=== PATIENT | female | born 1960 | race Caucasian/White ===

== ENCOUNTER 2020-09-29 11:33 | Outpatient (REF) | payer MEDICAID, SELFPAY ==
--- NOTE | 2020-09-29 | US_ITS ---
EXAMINATION: PELVIC ULTRASOUND CLINICAL INFORMATION: Fibroids COMPARISON: Previous pelvic ultrasounds most recent May 2020 TECHNIQUE: Transabdominal and transvaginal pelvic ultrasound was performed. Transvaginal exam was performed for better visualization of the uterus and ovaries. FINDINGS: The uterus is anteverted and measures 9.4 x 5.1 x 7.6 cm in dimension. There is a 4.5 x 4.1 x 4.9 cm right upper uterine body fibroid. This abuts the endometrium. This is increased in size from 3.7 x 3.5 x 3.6 cm on previous exam. There is a 1.4 x 0.9 x 1.2 cm fibroid in the anterior uterine body that is unchanged. There is a 1.2 x 1.3 x 1.5 cm fibroid in the left uterine fundus. This may be increased in size from approximately 1 cm on previous exam. There is a 1.2 x 0.9 x 1.1 cm fibroid in the upper anterior uterine body. This was not appreciated on the previous exam. The endometrium appears thickened for a postmenopausal patient measuring 1.3 cm. This is similar to previous exam. The previously identified endometrial cyst on most recent exam May 2020 is no longer seen. There are small nabothian cysts in the cervix. The right ovary is not seen. The left ovary is normal-appearing and measures 2.3 x 1.9 x 1.5 cm. There is no fluid in the pelvis. US/US pelvic complete IMPRESSION: Fibroid uterus. Several fibroids appear increased in size from May 2020 exam, largest measuring 4.5 x 4.1 x 4.9 cm in the right upper uterine body near the endometrium. Thickened endometrium for postmenopausal patient measuring 1.3 cm. This is similar to previous exam. Normal-appearing left ovary. Right ovary not seen.
== END 2020-09-29 11:34 | disposition home or self-care (01) ==
LOC: HO.US 11:33
PROVIDERS: Visit Provider Obstetrics & Gynecology
DX: D21.9 Benign neoplasm of connective and other soft tissue, unspecified (principal)
CPT/HCPCS: 76830; 76856

== ENCOUNTER → 2020-11-22 10:48 | Outpatient (BNVA) | payer MEDICAID, SELFPAY | PROVIDERS: PCP Nurse Practitioner Family; Referring Provider Nurse Practitioner Family; Visit Provider Obstetrics & Gynecology | DX: Z76.89 Persons encountering health services in other specified circumstances (principal) ==

== ENCOUNTER 2021-05-23 10:50 | Outpatient (REF) | payer MEDICAID, SELFPAY ==
--- NOTE | ~2021-05-23 | US_ITS ---
EXAMINATION: US PELVIS COMPLETE US TRANSVAGINAL CLINICAL INFORMATION: Benign neoplasm of connective and other soft tissues. COMPARISON: Ultrasound pelvis 09/29/2020 TECHNIQUE: Transabdominal and transvaginal imaging of pelvis is performed. FINDINGS: The uterus is midline or anteverted measuring 9.7 cm in length, 5.3 cm in AP and 5.5 cm in transverse dimension. The endometrial thickness is 1.3 cm and mildly hypervascular. There are multiple hyperechoic lesions. 1. Lesion in the right upper body of the uterus measures 4.7 x 4.5 x 4.3 cm. Previously it measured 4.5 x 4.1 x 4.9 cm. 2. Lesion in the anterior mid body of the uterus likely submucosal location measures 1.4 x 0.7 x 1.1 cm. Previously it measured 1.4 x 0.9 x 1.2 cm. 3. Lesion in the posterior body of the uterus measures 1.5 x 1.0 x 0.9 cm. Previously it was not seen. 4. Lesion in the anterior fundus of the uterus measures 1.4 x 1.6 x 1.4 cm. It has an echogenic calcification. Previously it measured 1.2 x 1.3 x 1.5 cm. 5. Lesion described previously is not seen at this time. The right ovary measures 2.3 x 1.5 x 1.1 cm and volume 2.0 mL. It appears unremarkable and best seen on transvaginal study. The left ovary measures 2.1 x 1.4 x 1.7 cm and volume 26 mL. Previously it measured 2.3 x 1.9 x 1.5 cm and volume 3.4 mL. There is no free fluid in the cul-de-sac. US/US pelvic complete IMPRESSION: Multiple uterine fibroids, as described above. The previously described 5th fibroid is not seen at this time. Thickened endometrium with hypervascular flow. The ovaries are unremarkable. There is no free fluid in the cul-de-sac.
== END 2021-05-23 10:51 | disposition home or self-care (01) ==
LOC: HO.US 10:50
PROVIDERS: Visit Provider Obstetrics & Gynecology
DX: D21.9 Benign neoplasm of connective and other soft tissue, unspecified (principal)
CPT/HCPCS: 76830; 76856

== ENCOUNTER → 2021-05-30 11:24 | Outpatient (BNVA) | payer MEDICAID, SELFPAY | PROVIDERS: PCP Nurse Practitioner Family; Visit Provider Obstetrics & Gynecology ==

== ENCOUNTER → 2021-08-01 09:52 | Outpatient (BNVA) | payer MEDICAID, SELFPAY | PROVIDERS: PCP Nurse Practitioner Family; Visit Provider Obstetrics & Gynecology ==

== ENCOUNTER → 2021-09-08 13:06 | Outpatient (BNVA) | payer MEDICAID, SELFPAY | PROVIDERS: PCP Nurse Practitioner Family; Referring Provider Nurse Practitioner Family; Visit Provider Surgery | DX: N63.0 Unspecified lump in unspecified breast (principal) | CPT/HCPCS: 99202 ==

== ENCOUNTER → 2021-12-19 14:51 | Outpatient (BNVA) | payer MEDICAID, SELFPAY | PROVIDERS: PCP Nurse Practitioner Family; Referring Provider Internal Medicine; Visit Provider Physician Assistant | DX: Z12.11 Encounter for screening for malignant neoplasm of colon (principal); R07.9 Chest pain, unspecified | CPT/HCPCS: 99202 ==

== ENCOUNTER 2021-12-19 15:33 | Emergency (ER) | payer MEDICAID, SELFPAY ==
--- NOTE | ~2021-12-19 | XR_ITS ---
EXAMINATION: XR CHEST CLINICAL INFORMATION: Chest pain. COMPARISON: Chest radiograph dated from 09/09/2017. TECHNIQUE: PA view of the chest was obtained. FINDINGS: Normal appearance of the cardiomediastinal silhouette. No focal airspace opacities, pleural effusions or pneumothorax. No acute osseous abnormalities. The visualized upper abdomen is within normal limits. XR/XR chest 1V IMPRESSION: No acute cardiopulmonary findings.
--- NOTE | 2021-12-19 15:44 | ECG_ITS ---
Test Reason : chest pain Blood Pressure : / mmHG Vent. Rate : 065 BPM Atrial Rate : 065 BPM P-R Int : 150 ms QRS Dur : 086 ms QT Int : 430 ms P-R-T Axes : 063 022 017 degrees QTc Int : 447 ms Normal sinus rhythm Normal ECG No previous ECGs available Referred By: Generic ED Physician Electronically Signed By:Antione Frias
[2021-12-19 15:50] VITALS: BP 154/78; PULSE 71; RESP 18; TEMP 36.5; O2SAT 99; BMI 27.4
[2021-12-19 16:57] LABS: MANUAL DIFF FLAG NO
[2021-12-19 17:00] LABS: Basophils Absolute Auto 0.1 X10*3/uL (0.0-0.2); Basophils Percent Auto 0.6 % (0-2); Eosinophils Absolute Auto 0.2 X10*3/uL (0.0-0.4); Eosinophils Percent Auto 2.1 % (0-4); Hematocrit 42.9 % (37.0-47.0); Hemoglobin 14.6 g/dl (12.0-16.0); Imm Gran Abs Auto 0.03 X10*3/uL (0.00-0.03); Imm Gran Pct Auto 0.3 % (0.0-0.4); Lymphocytes Absolute Auto 4.6 X10*3/uL (1.2-4.9); Lymphocytes Percent Auto 43.5 % (20-40); Mean Corpuscular Hemoglobin 29.4 pg (27.0-33.0); Mean Corpuscular Volume 86.5 fL (80.0-98.0); Mean Platelet Volume 10.7 fL (9.4-12.3); Monocytes Absolute Auto 0.5 X10*3/uL (0.1-1.2); Monocytes Percent Auto 4.2 % (2-11); Neutrophils Absolute Auto 5.3 x10*3/uL (2.0-8.3); Neutrophils Percent Auto 49.3 % (45-73); Platelet Count 282 X10*3/uL (160-400); Red Blood Count 4.96 X10*6/uL (4.20-5.50); Red Cell Distribution Width 12.6 % (11.0-16.0); White Blood Count 10.6 X10*3/uL (4.8-10.8)
[2021-12-19 17:17] LABS: Anion Gap 13 (12-20); Blood Urea Nitrogen 12 mg/dL (9-16); Calcium 10.4 mg/dL (8.4-10.2); Carbon Dioxide 28 mmol/L (22-29); Chloride 103 mmol/L (96-108); Creatinine Clr Calc Pharmacy 66.7; Estimated Glomerular Filt Rate > 60; Glucose Random 111 mg/dL (60-115); Potassium 3.5 mmol/L (3.3-5.1); Sodium 140 mmol/L (135-145)
[2021-12-19 17:25] LABS: Troponin-I High Sensitivity < 3.5 ng/L (<3.5-17.0)
--- NOTE | 2021-12-19 19:56 | ED.CHESTPAIN ---
HPI - Chest Pain General Chief Complaint: Chest Pain Stated Complaint: chest pain, sob Time Seen by Provider: 12/19/21 19:56 Source: patient History of Present Illness HPI narrative: Patient states she has had chest pain Since yesterday. It is sharp in on her left side. It is worse with breathing. No difficulty breathing. No cough. No history of similar issues. It is constant since yesterday. No change with exertion. No history of thromboembolic disease Risk factors are hypertension which is typically well controlled at home. Nonsmoker Review of Systems Constitutional: Comments: No fevers or chills Cardiovascular: Comments: Chest pain as described. No palpitations Respiratory: Comments: No cough Gastrointestinal: Comments: No nausea vomiting Musculoskeletal: Comments: No leg pain Integumentary/Breasts: Comments: No rash PMFSH Past Medical History Medical History (Updated 12/19/21 @ 20:00 by Joe Vargas MD) Breast cancer Hypertension Social History Social History Patient : No Physical Exam Vital Signs: Vital Signs: Last Vital Signs Temp 97.7 F 12/19/21 15:50 Pulse 71 12/19/21 15:50 Resp 18 12/19/21 15:50 BP 154/78 H 12/19/21 15:50 Pulse Ox 99 12/19/21 15:50 BMI result Body Mass Index 27.4 Const: Other: Awake alert no acute distress Neck: Other: Full range of motion Chest: Other: Chest wall nontender to palpation Resp: Other: Clear and equal bilaterally without wheezes rales or rhonchi Cardio: Other: Regular rate and rhythm without murmurs rubs or gallops GI: Other: Soft nontender Skin: Other: Warm pink and dry without rash Neuro: Other: Alert and oriented. Ambulates without difficulty Course Course Course Narrative: Chest pain with risk factor of hypertension. Rule out cardiac etiology. No thromboembolic risk factors Workup in the emergency department shows EKG with normal sinus rhythm with no evidence of ischemia All labs including troponin are normal Chest x-ray is normal Stable for discharge home MDM - Chest Pain Lab Data Result diagrams: 12/19/21 16:53 12/19/21 16:52 Labs: Lab Results 12/19/21 12/19/21 12/19/21 Range/Units 16:52 16:52 16:53 WBC 10.6 (4.8-10.8) X10*3/uL RBC 4.96 (4.20-5.50) X10*6/uL Hgb 14.6 (12.0-16.0) g/dl Hct 42.9 (37.0-47.0) % MCV 86.5 (80.0-98.0) fL MCH 29.4 (27.0-33.0) pg MCHC 34.0 (31.0-35.0) g/dl RDW 12.6 (11.0-16.0) % Plt Count 282 (160-400) X10*3/uL MPV 10.7 (9.4-12.3) fL Immature Gran % (Auto) 0.3 (0.0-0.4) % Neut % (Auto) 49.3 (45-73) % Lymph % (Auto) 43.5 H (20-40) % [place] % (Auto) 4.2 (2-11) % Eos % (Auto) 2.1 (0-4) % Baso % (Auto) 0.6 (0-2) % Lymph # (Auto) 4.6 (1.2-4.9) X10*3/uL [place] # (Auto) 0.5 (0.1-1.2) X10*3/uL Eos # (Auto) 0.2 (0.0-0.4) X10*3/uL Baso # (Auto) 0.1 (0.0-0.2) X10*3/uL Abs Immat Gran (auto) 0.03 (0.00-0.03) X10*3/uL Absolute Neuts (auto) 5.3 (2.0-8.3) x10*3/uL Absolute Nucleated RBC 0.000 (0.0-0.012) X10*3/uL Nucleated RBC % (auto) 0.0 (0.0-0.2) /100WBC Sodium 140 (135-145) mmol/L Potassium 3.5 (3.3-5.1) mmol/L Chloride 103 (96-108) mmol/L Carbon Dioxide 28 (22-29) mmol/L Anion Gap 13 (12-20) BUN 12 (9-16) mg/dL Creatinine 0.82 (0.5-1.4) mg/dL Estim Creat Clear Calc 66.7 Estimated GFR > 60 Random Glucose 111 (60-115) mg/dL Calcium 10.4 H (8.4-10.2) mg/dL Troponin I High Sens < 3.5 (<3.5-17.0) ng/L Discharge Plan Discharge Clinical Impression: Atypical chest pain Patient Disposition: Home, Self-Care Instructions: Chest Wall Pain (ED)
== END 2021-12-19 21:02 | disposition home or self-care (01) ==
LOC: HO.ED 20:05
PROVIDERS: Emergency Provider Emergency Medicine
DX: R07.89 Other chest pain (principal); I10 Essential (primary) hypertension; Z85.3 Personal history of malignant neoplasm of breast
CPT/HCPCS: 36415; 71045; 80048; 84484; 85025; 93005; 99283

== ENCOUNTER 2022-01-13 13:38 | Outpatient (REF) | payer MEDICAID, SELFPAY ==
--- NOTE | ~2022-01-13 | XR_ITS ---
EXAMINATION: XR SHOULDER, LEFT CLINICAL INFORMATION: Pain COMPARISON: None TECHNIQUE: AP external rotation, Grashey, scapular Y, and axillary views of the left shoulder. FINDINGS: Bone alignment is normal. No fracture or dislocation is seen. The glenohumeral joint is normal. There is mild arthritis at the acromioclavicular joint. Soft tissues are unremarkable. XR/XR shoulder LT min 2V IMPRESSION: Mild arthritis at the acromioclavicular joint.
== END 2022-01-13 13:39 | disposition home or self-care (01) ==
LOC: HO.XRAY 13:38
PROVIDERS: PCP Registered Nurse; Visit Provider Registered Nurse
DX: M25.512 Pain in left shoulder (principal)
CPT/HCPCS: 73030

== ENCOUNTER → 2022-02-01 13:45 | Outpatient (BNVA) | payer MEDICAID, SELFPAY | PROVIDERS: PCP Internal Medicine; Referring Provider Internal Medicine; Visit Provider Internal Medicine Cardiovascular Disease | DX: R07.9 Chest pain, unspecified (principal) | CPT/HCPCS: 99202 ==

== ENCOUNTER → 2022-02-15 10:25 | Outpatient (REF) | payer MEDICAID, SELFPAY ==
--- NOTE | 2022-02-15 10:29 | CA_ITS ---
Acquisition Time: 2022-02-15 11:01:22 Total Exercise Time: 00:05:00 Test Indications: CP Medications: SEE CHART Protocol: JESÚS Max HR: 141 BPM 87% of Pred: 161 BPM Max BP: 176/070 mmHG Max Work Load: 7.0 METS Exercise stress test with exercise 5 min of Jesús protocol achieving 88% MPHR and 7 METs, with mild sob and fatigue and request to stop, with no chest discomfort, with isolated PVC, with normotensive response to exercise, without EKG changes meeting criteria for ischemia. Test reviewed with Dr Manrique. Referred By: Antione Frias Overread By: NENITA JUNG
== END ==
LOC: HO.CARD 10:25
PROVIDERS: PCP Registered Nurse; Visit Provider Internal Medicine Cardiovascular Disease
DX: R07.9 Chest pain, unspecified (principal)
CPT/HCPCS: 93017

== ENCOUNTER 2022-02-20 21:29 | Emergency (ER) | payer MEDICAID, SELFPAY ==
[2022-02-20 21:35] VITALS: BP 180/82; PULSE 80; O2SAT 98
[2022-02-20 22:12] VITALS: BP 173/75; PULSE 88; RESP 20; TEMP 36.9; O2SAT 99; BMI 28.3
--- NOTE | 2022-02-21 01:19 | ED.GENADULT ---
HPI - General Adult General Chief complaint: General Medical Time Seen by Provider: 02/21/22 01:18 Source: patient Mode of arrival: ambulatory Limitations: no limitations Related Data Home Medications Medication Instructions Recorded Confirmed aspirin 81 mg chewable tablet 81 mg PO DAILY 11/22/20 02/01/22 cholecalciferol (vitamin D3) 50 50 mcg PO DAILY 11/22/20 02/01/22 mcg (2,000 unit) capsule rosuvastatin 5 mg tablet 10 mg PO DAILY tab 11/22/20 02/01/22 amlodipine 2.5 mg tablet 2.5 mg PO DAILY 08/01/21 02/01/22 cyanocobalamin (vitamin B-12) 1,000 mcg PO DAILY 08/01/21 02/01/22 1,000 mcg tablet loratadine 10 mg tablet 10 mg PO DAILY 08/01/21 02/01/22 metformin 500 mg tablet,extended 500 mg PO BID 08/01/21 02/01/22 release 24 hr rosuvastatin 10 mg tablet 10 mg PO DAILY 08/01/21 02/01/22 alcohol swabs (Alcohol Prep Pads) pad TOPICAL BID 09/08/21 02/01/22 blood pressure test kit-large #1 ea 09/08/21 02/01/22 blood sugar diagnostic (FreeStyle #10 ea 09/08/21 02/01/22 Lite Strips) blood-glucose meter (FreeStyle #1 ea 09/08/21 02/01/22 [place] Lite) lancets 33 gauge (TRUEplus Lancets) #100 ea 09/08/21 02/01/22 topiramate 25 mg tablet 25 mg PO DAILY 09/08/21 02/01/22 chlorthalidone 25 mg tablet 25 mg PO DAILY 02/01/22 02/01/22 cholecalciferol (vitamin D3) 50 50 mcg PO DAILY 02/01/22 02/01/22 mcg (2,000 unit) tablet lisinopril 40 mg tablet 40 mg PO DAILY 02/01/22 02/01/22 Allergies Allergy/AdvReac Type Severity Reaction Status Date / Time Gadolinium-Containing Allergy Severe HIVES Verified 02/01/22 13:47 Contrast Medi [GADOLINIUM-CONTAINING AGENTS] Iodinated Contrast Media Allergy Severe UNKNOWN Verified 02/01/22 13:47 [IV DYE, IODINE CONTAINING CONTRAST ] SEAFOOD Allergy Severe HIVES Uncoded 02/01/22 13:47 SHELLFISH Allergy Severe ANAPHYLAXIS Uncoded 02/01/22 13:47 [facility] Past Medical History Medical History (Updated 02/01/22 @ 14:02 by Antione Frias MD) Anemia Breast cancer Breast cancer, right Chest pain Depression High cholesterol HTN (hypertension) Hypertension Migraine Prediabetes Surgical History S/P lumpectomy, right breast Family History Family History Sister Breast cancer Ovarian cancer Social History Social History Household Members: Spouse Alcohol intake: never Patient Tobacco Use Status: Never used Tobacco Current occupational status: disabled Sexual orientation: Straight/Heterosexual Gender identity: Female Physical Exam ED Vital Signs: Vital Signs - 24 hr 02/20/22 22:12 Temperature 98.4 F Pulse Rate 88 Respiratory Rate 20 Blood Pressure 173/75 H Pulse Oximetry 99 BMI result Body Mass Index 28.3 Discharge Plan Discharge Prescriptions: No Action rosuvastatin 10 mg tablet 10 mg PO DAILY 0RF metformin 500 mg tablet extended release 24 hr 500 mg PO BID 0RF cyanocobalamin (vitamin B-12) 1,000 mcg tablet 1,000 mcg PO DAILY 0RF loratadine 10 mg tablet 10 mg PO DAILY 0RF amlodipine 2.5 mg tablet 2.5 mg PO DAILY 0RF cholecalciferol (vitamin D3) 50 mcg (2,000 unit) capsule 50 mcg PO DAILY 0RF aspirin 81 mg tablet,chewable 81 mg PO DAILY 0RF rosuvastatin 5 mg tablet 10 mg PO DAILY 0RF topiramate 25 mg tablet 25 mg PO DAILY 0RF (DME) lancets [TRUEplus Lancets] 33 gauge misc See Rx Instructions ea Not Applicable BID Qty: 100 0RF Rx Instructions: As directed (DME) blood pressure test kit-large Kit See Rx Instructions ea .ROUTE BID Qty: 1 0RF Rx Instructions: As directed alcohol swabs [Alcohol Prep Pads] Pads, Medicated topical BID 0RF (DME) FreeStyle Lite Strips Strip See Rx Instructions ea Not Applicable BID Qty: 10 0RF Rx Instructions: As directed (DME) blood-glucose meter [FreeStyle [place] Lite] Kit See Rx Instructions ea Not Applicable BID Qty: 1 0RF Rx Instructions: As directed lisinopril 40 mg tablet 40 mg PO DAILY 0RF chlorthalidone 25 mg tablet 25 mg PO DAILY 0RF cholecalciferol (vitamin D3) 50 mcg (2,000 unit) tablet 50 mcg PO DAILY 0RF
== END 2022-02-21 02:02 | disposition left against medical advice (07) ==
PROVIDERS: Emergency Provider Emergency Medicine
DX: M54.2 Cervicalgia (principal)
CPT/HCPCS: 99281; 99282

== ENCOUNTER 2022-11-14 16:28 | Outpatient (REF) | payer MEDICAID, SELFPAY ==
--- NOTE | ~2022-11-14 | XR_ITS ---
EXAMINATION: XR WRIST, RIGHT CLINICAL INFORMATION: Acute worsening of right aspect of wrist pain. COMPARISON: X-ray 05/17/2019 TECHNIQUE: Four views of the right wrist. FINDINGS: There is marked diffuse bone demineralization. No acute fracture or dislocation is seen. No definite scaphoid fracture is seen. Moderate-severe first CMC arthritis. Mild first MCP arthritis. Mild triscaphe joint arthritis. Carpal rows are well aligned. Stable ulna styloid blunting. Multiple small radiodensities projected over the and, probably related to overlapping densities. Technologist notes indicate patient has artificial nails. XR/XR wrist RT min 3V IMPRESSION: No radiographically evident acute fracture or dislocation. Osteopenia limits evaluation. If this persistent symptoms, follow-up radiographs are recommended. Arthritis. Moderate-severe first CMC arthritis.
== END 2022-11-14 16:29 | disposition home or self-care (01) ==
LOC: HO.XRAY 16:28
PROVIDERS: PCP Registered Nurse; Visit Provider Registered Nurse
DX: M25.531 Pain in right wrist (principal)
CPT/HCPCS: 73110

== ENCOUNTER → 2023-01-30 14:57 | Outpatient (BNVA) | payer MEDICAID, SELFPAY | PROVIDERS: PCP Registered Nurse; Visit Provider Physician Assistant | DX: M19.031 Primary osteoarthritis, right wrist (principal) | CPT/HCPCS: 99202 ==

== ENCOUNTER 2023-05-28 09:28 | Outpatient (REF) | payer MEDICAID, SELFPAY ==
[2023-05-28 11:58] LABS: MANUAL DIFF FLAG NO
[2023-05-28 12:09] LABS: Basophils Absolute Auto 0.1 X10*3/uL (0.0-0.2); Basophils Percent Auto 0.7 % (0-2); Eosinophils Absolute Auto 0.2 X10*3/uL (0.0-0.4); Eosinophils Percent Auto 1.9 % (0-4); Hematocrit 42.2 % (37.0-47.0); Imm Gran Abs Auto 0.02 X10*3/uL (0.00-0.03); Imm Gran Pct Auto 0.2 % (0.0-0.4); Lymphocytes Absolute Auto 4.1 X10*3/uL (1.2-4.9); Lymphocytes Percent Auto 48.5 % (20-40); Mean Corpuscular HGB Conc 33.2 g/dl (31.0-35.0); Mean Corpuscular Hemoglobin 29.2 pg (27.0-33.0); Mean Corpuscular Volume 87.9 fL (80.0-98.0); Mean Platelet Volume 10.5 fL (9.4-12.3); Monocytes Absolute Auto 0.4 X10*3/uL (0.1-1.2); Neutrophils Absolute Auto 3.7 x10*3/uL (2.0-8.3); Neutrophils Percent Auto 43.7 % (45-73); Platelet Count 271 X10*3/uL (160-400); Red Cell Distribution Width 12.9 % (11.0-16.0); White Blood Count 8.5 X10*3/uL (4.8-10.8)
[2023-05-28 12:25] LABS: Estimated Average Glucose 134 mg/dL; Hemoglobin A1c % 6.3 %
[2023-05-28 12:38] LABS: Syphilis Screen Nonreactive (Nonreactive)
[2023-05-28 12:39] LABS: HIV AB/AG Nonreactive (Nonreactive); HIV Num 1 0.05 S/CO (0.00-0.99)
[2023-05-28 12:50] LABS: Alanine Aminotransferase 8 U/L (0-31); Albumin Level 4.2 g/dL (3.5-5.0); Alkaline Phosphatase 40 U/L (39-117); Anion Gap 14 (12-20); Aspartate Amino Transferase 17 U/L (5-31); Bilirubin Total 0.3 mg/dL (0.0-1.0); Blood Urea Nitrogen 10 mg/dL (9-16); Calcium 10.7 mg/dL (8.4-10.2); Carbon Dioxide 28 mmol/L (22-29); Chloride 106 mmol/L (96-108); Cholesterol 208 mg/dL; Estimated Glomerular Filt Rate > 60; Glucose Random 136 mg/dL (60-115); HDL Cholesterol 42 mg/dL; LDL Cholesterol Calculated 142 mg/dl; Potassium 3.8 mmol/L (3.3-5.1); Sodium 144 mmol/L (135-145); Total Protein 8.5 g/dL (6.5-8.0); Triglycerides 124 mg/dL
[2023-05-28 12:53] LABS: Folate 14.7 ng/mL (> or = 4.0); Vitamin B12 367 pg/mL (200-900)
[2023-05-28 12:58] LABS: TSH reflex Free T4 1.68 uIU/mL (0.32-4.0)
== END 2023-05-28 09:29 | disposition home or self-care (01) ==
LOC: HO.HHCL 09:28
PROVIDERS: Visit Provider Registered Nurse
DX: Z00.00 Encounter for general adult medical examination without abnormal findings (principal); Z11.4 Encounter for screening for human immunodeficiency virus [HIV]; E78.00 Pure hypercholesterolemia, unspecified; I10 Essential (primary) hypertension; R73.02 Impaired glucose tolerance (oral)
CPT/HCPCS: 36415; 80053; 80061; 82306; 82607; 82746; 83036; 84443; 85025; 86780; 87389

== ENCOUNTER 2024-02-19 08:40 | Outpatient (REF) | payer MEDICAID, SELFPAY ==
[2024-02-19 12:08] LABS: Anion Gap 12 (12-20); Blood Urea Nitrogen 7 mg/dL (9-16); Carbon Dioxide 29 mmol/L (22-29); Chloride 108 mmol/L (96-108); Estimated Glomerular Filt Rate > 60; Glucose Random 98 mg/dL (60-115); Potassium 3.6 mmol/L (3.3-5.1); Sodium 145 mmol/L (135-145)
[2024-02-19 12:14] LABS: Estimated Average Glucose 128 mg/dL; Hemoglobin A1c % 6.1 % (<6.0)
[2024-02-19 12:15] LABS: Creatinine Urine 60.93 mg/dL; Microalbum/Creatinine Ratio Ur 88.6 ug/mg cr (<30)
== END 2024-02-19 08:41 | disposition home or self-care (01) ==
LOC: HO.HHCL 08:40
PROVIDERS: Visit Provider Nurse Practitioner Primary Care
DX: R73.02 Impaired glucose tolerance (oral) (principal); I10 Essential (primary) hypertension
CPT/HCPCS: 36415; 80048; 82043; 82570; 83036

== ENCOUNTER 2024-06-26 09:57 | Outpatient (REF) | payer MEDICAID, SELFPAY ==
[2024-06-26 11:32] LABS: Hematocrit 38.9 % (37.0-47.0); Hemoglobin 13.2 g/dl (12.0-16.0); Mean Corpuscular HGB Conc 33.9 g/dl (31.0-35.0); Mean Corpuscular Hemoglobin 29.7 pg (27.0-33.0); Mean Corpuscular Volume 87.6 fL (80.0-98.0); Platelet Count 296 X10*3/uL (160-400); Red Blood Count 4.44 X10*6/uL (4.20-5.50); Red Cell Distribution Width 12.8 % (11.0-16.0)
[2024-06-26 11:39] LABS: Estimated Average Glucose 126 mg/dL
[2024-06-26 12:05] LABS: Alanine Aminotransferase 10 U/L (0-31); Albumin Level 4.4 g/dL (3.5-5.0); Alkaline Phosphatase 39 U/L (39-117); Anion Gap 14 (12-20); Aspartate Amino Transferase 16 U/L (5-31); Bilirubin Total 0.3 mg/dL (0.0-1.0); Blood Urea Nitrogen 12 mg/dL (9-16); Calcium 10.5 mg/dL (8.4-10.2); Carbon Dioxide 27 mmol/L (22-29); Chloride 105 mmol/L (96-108); Cholesterol 208 mg/dL (<200); Estimated Glomerular Filt Rate > 60; Glucose Random 125 mg/dL (60-115); HDL Cholesterol 46 mg/dL (>40); LDL Cholesterol Calculated 137 mg/dL (<100); Potassium 3.7 mmol/L (3.3-5.1); Sodium 142 mmol/L (135-145); Total Protein 8.9 g/dL (6.5-8.0); Triglycerides 125 mg/dL (<150)
[2024-06-26 12:06] LABS: Syphilis Screen Nonreactive (Nonreactive); TSH reflex Free T4 0.77 uIU/mL (0.32-4.0); Vitamin D 25-OH Total 25.8 ng/mL (>30)
[2024-06-26 12:14] LABS: Folate 9.5 ng/mL (> or = 4.0); Vitamin B12 412 pg/mL (200-900)
[2024-06-26 13:31] LABS: CT PCR NOT DETECTED (Not Detect.); NG PCR NOT DETECTED (Not Detect.)
[2024-06-27 04:12] LABS: HBS Num1 0.39 mIU/mL (0-7.99); HBsAGNum1 0.27 S/CO (0.00-0.99); HIV AB/AG Nonreactive (Nonreactive); HIV Num 1 0.05 S/CO (0.00-0.99); Hepatitis B Core Antibody Nonreactive (Nonreactive); Hepatitis B Surface Antigen Negative (Negative); ~HepC Num1 0.19 S/CO (0.00-0.79); ~Hepatitis B Surface Antibody NONREACTIVE (Nonreactive); ~Hepatitis C Antibody Nonreactive (Nonreactive)
== END 2024-06-26 09:58 | disposition home or self-care (01) ==
LOC: HO.HHCL 09:57
PROVIDERS: Visit Provider Student in an Organized Health Care Education/Training Program
DX: Z00.00 Encounter for general adult medical examination without abnormal findings (principal)
CPT/HCPCS: 36415; 80053; 80061; 82306; 82607; 82746; 83036; 84443; 85027; 86704; 86706; 86780; 86803; 87340; 87389; 87491; 87591

== ENCOUNTER 2024-09-05 10:28 | Emergency (ER) | payer MEDICAID, SELFPAY ==
--- NOTE | ~2024-09-05 | XR_ITS ---
EXAMINATION: XR ANKLE, RIGHT XR FOOT, RIGHT CLINICAL INFORMATION: Swelling. COMPARISON: None available. TECHNIQUE: AP, lateral, and mortise views of the right ankle. AP, lateral, and oblique views of the right foot. FINDINGS: There is mild bony demineralization. The ankle mortise is intact. No fracture, dislocation or right ankle joint effusion is seen. Boehler's angle is normal. There are tiny posterior and moderate plantar calcaneal spurs. There is very mild bunion formation of the first metatarsal head. No bone erosion or periosteal thickening is seen. There is mild soft tissue swelling adjacent to the lateral malleolus. There is no soft tissue gas or foreign body. XR/XR foot RT min 3V IMPRESSION: 1. No fracture, dislocation or right ankle joint effusion is seen. 2. There is mild soft tissue swelling adjacent to the lateral malleolus. 3. There is very mild bunion formation of the first metatarsal head. 4. There are calcaneal spurs. Electronically signed by: Davon Bowser MD 09/05/2024 12:48 PM EDT
--- NOTE | ~2024-09-05 | XR_ITS ---
EXAMINATION: XR ANKLE, RIGHT XR FOOT, RIGHT CLINICAL INFORMATION: Swelling. COMPARISON: None available. TECHNIQUE: AP, lateral, and mortise views of the right ankle. AP, lateral, and oblique views of the right foot. FINDINGS: There is mild bony demineralization. The ankle mortise is intact. No fracture, dislocation or right ankle joint effusion is seen. Boehler's angle is normal. There are tiny posterior and moderate plantar calcaneal spurs. There is very mild bunion formation of the first metatarsal head. No bone erosion or periosteal thickening is seen. There is mild soft tissue swelling adjacent to the lateral malleolus. There is no soft tissue gas or foreign body. XR/XR ankle RT min 3V IMPRESSION: 1. No fracture, dislocation or right ankle joint effusion is seen. 2. There is mild soft tissue swelling adjacent to the lateral malleolus. 3. There is very mild bunion formation of the first metatarsal head. 4. There are calcaneal spurs. Electronically signed by: Davon Bowser MD 09/05/2024 12:48 PM EDT
[2024-09-05 10:40] VITALS: BP 140/71; PULSE 74; RESP 18; TEMP 36.7; O2SAT 99; BMI 29.1
--- NOTE | 2024-09-05 11:17 | ED_ITS ---
HPI - Extremity Injury (Lower) General Chief Complaint: Extremity Injury, Lower Stated Complaint: r foot pain Time Seen by Provider: 09/05/24 10:57 Source: patient, RN notes reviewed and old records reviewed Mode of arrival: ambulatory History of Present Illness ED Provider: Glenna Olguin PA-C HPI Narrative: 63-year-old female with a past medical history of HTN, breast CA, depression, migraines, HLD, anemia, presenting to ED complaining of right ankle pain and swelling noted since waking this morning. Denies known injury/trauma or fall, numbness, tingling, weakness, history of gout Related Data Home Medications ?Medication ?Instructions ?Recorded ?Confirmed aspirin 81 mg chewable tablet 81 mg PO DAILY 11/22/20 02/01/22 cholecalciferol (vitamin D3) 50 50 mcg PO DAILY 11/22/20 02/01/22 mcg (2,000 unit) capsule rosuvastatin 5 mg tablet 10 mg PO DAILY 11/22/20 02/01/22 amlodipine 2.5 mg tablet 2.5 mg PO DAILY 08/01/21 02/01/22 cyanocobalamin (vitamin B-12) 1,000 mcg PO DAILY 08/01/21 02/01/22 1,000 mcg tablet loratadine 10 mg tablet 10 mg PO DAILY 08/01/21 02/01/22 metformin 500 mg tablet,extended 500 mg PO BID 08/01/21 02/01/22 release 24 hr rosuvastatin 10 mg tablet 10 mg PO DAILY 08/01/21 02/01/22 alcohol swabs (Alcohol Prep Pads) pad topical BID 09/08/21 02/01/22 blood pressure test kit-large #1 ea 09/08/21 02/01/22 blood sugar diagnostic (FreeStyle #10 ea 09/08/21 02/01/22 Lite Strips) blood-glucose meter (FreeStyle #1 ea 09/08/21 02/01/22 [place] Lite kit) lancets 33 gauge (TRUEplus Lancets) #100 ea 09/08/21 02/01/22 topiramate 25 mg tablet 25 mg PO DAILY 09/08/21 02/01/22 chlorthalidone 25 mg tablet 25 mg PO DAILY 02/01/22 02/01/22 cholecalciferol (vitamin D3) 50 50 mcg PO DAILY 02/01/22 02/01/22 mcg (2,000 unit) tablet lisinopril 40 mg tablet 40 mg PO DAILY 02/01/22 02/01/22 Previous Rx's ?Medication ?Instructions ?Recorded acetaminophen 500 mg tablet 500 mg PO Q6H PRN fever or pain 09/05/24 (Tylenol Extra Strength) #14 tabs ibuprofen 800 mg tablet 800 mg PO Q8H PRN pain #14 tabs 09/05/24 Allergies Allergy/AdvReac Type Severity Reaction Status Date / Time Gadolinium-Containing Allergy Severe HIVES Verified 09/05/24 10:42 Contrast Medi [GADOLINIUM-CONTAINING AGENTS] Iodinated Contrast Media Allergy Severe UNKNOWN Verified 09/05/24 10:42 [IV DYE, IODINE CONTAINING CONTRAST ] SEAFOOD Allergy Severe HIVES Uncoded 02/18/24 08:08 SHELLFISH Allergy Severe ANAPHYLAXIS Uncoded 02/18/24 08:08 Review of Systems Review of Systems: Yes all other systems are reviewed and are negative Constitutional: Constitutional: Reports as per [facility] Past Medical History Attestation statement: The following information was validated with the patient. Source: old records reviewed Medical History Hypertension Breast cancer Chest pain Depression Prediabetes Migraine High cholesterol Anemia Breast cancer, right HTN (hypertension) Surgical History S/P lumpectomy, right breast Family History Family History Sister Breast cancer Ovarian cancer Social History Social History Household Members: Spouse Alcohol intake: never Patient Tobacco Use Status: Never used Tobacco Advance Directives: No Advance Directives Information Provided: Yes Current occupational status: disabled Sexual orientation: Straight/Heterosexual Gender identity: Female Physical Exam Vital Signs: Vital Signs: Last Vital Signs Temp 97.9 F 09/05/24 14:40 Pulse 70 09/05/24 14:40 Resp 18 09/05/24 14:40 BP 131/77 09/05/24 14:40 Pulse Ox 98 09/05/24 14:40 O2 Del Method Room Air 09/05/24 14:40 BMI result Body Mass Index 29.1 Const: General: cooperative, healthy appearing and no acute distress Orientation/consciousness: patient oriented x3 Limitations: no limitations HEENT: Head: Yes normal to inspection and Yes atraumatic Ears: hearing grossly normal bilaterally General nose exam: Normal external nose present Face and sinus: Yes normal facial exam Eyes: General: appearance normal, both eyes and all related structures EOM: EOMs intact bilaterally Neck: Neck: Yes normal visual inspection and Yes no meningeal signs Resp: Effort & Inspection: normal respiratory effort and no respiratory distress Cardio: Rate: regular rate Skin: Rashes: no rashes Wounds: no wounds Neuro: General: patient oriented x3, tone normal and no meningeal signs Cranial nerves: Yes CN's II-XII intact bilaterally Gait exam (Neuro): Normal gait present Extrem: Other: Right ankle > lateral aspect with appreciable swelling and tenderness to palpation. Limited ROM secondary to pain. Neurovascularly intact distally. Knee and tib-fib nontender Course Course Course Narrative: XR foot RT min 3V/XR ankle RT min 3V IMPRESSION: 1. No fracture, dislocation or right ankle joint effusion is seen. 2. There is mild soft tissue swelling adjacent to the lateral malleolus. 3. There is very mild bunion formation of the first metatarsal head. 4. There are calcaneal spurs. > patient placed in Aircast and supplied with crutches as to follow up with PCP Results discussed with patient including worrisome signs and symptoms and strict return precautions, and when to return to the emergency department. They verbalized understanding and feel safe for discharge at this time. Medications Administered Discontinued Medications Generic Name Dose Route Start Last Admin Trade Name Freq PRN Reason Stop Dose Admin Ketorolac Tromethamine 30 mg 09/05/24 11:35 09/05/24 11:49 Ketorolac Tromethamine 30 Mg/Ml Vial IM 09/05/24 11:36 30 mg ONCE ONE Administration Medical Decision Making Medical Decision Making [facility] Narrative: 63-year-old female with a past medical history of HTN, breast CA, depression, migraines, HLD, anemia, presenting to ED complaining of right ankle pain and swelling noted since waking this morning. On exam vital signs stable, NAD, nontoxic appearing, physical exam as noted above. Concern for fracture vs strain. No evidence of septic joint or arthritis. Lower suspicion for gout at this time Plan: X-rays Please refer to course for remaining clinical decision making, interpretation of labs/imaging results, and discussions with consultants and/or family members. Differential Diagnosis Differential Diagnoses: The differential diagnosis associated with the presentation includes As above Independent Interpretation I performed an independent interpretation of an: Plain X-Ray Radiology Impression Discussion of test interpretation with radiology: I have reviewed the radiologist's reading. Independent Historian Clinical information obtained from an independent historian. History obtained from or confirmed by: Spouse External Record Review External record reviewed: Inpatient record, Office record, Outpatient record, Prior outpatient labs, Prior outpatient radiology, Primary care record and Outside ED record Tests considered The following testing was considered but not selected: As above Prescription Management I considered prescription management with: Pain Medication Discharge Plan Discharge Clinical Impression: Acute ankle pain Patient Disposition: Home, Self-Care Instructions: Arthralgia (ED) Additional Instructions: Your x-ray shows soft tissue swelling of your ankle adjacent to your lateral malleolus Please ice and elevate Wear Aircast as needed for comfort and stability Use crutches as needed Bear weight as tolerated Take ibuprofen and Tylenol at home as needed for pain/swelling If symptoms persist or worsen, pain becomes unbearable, area begins to look infected, or red return to the ED Prescriptions: New ibuprofen 800 mg tablet 800 mg PO Q8H PRN (Reason: pain) Qty: 14 0RF acetaminophen [Tylenol Extra Strength] 500 mg tablet 500 mg PO Q6H PRN (Reason: fever or pain) Qty: 14 0RF No Action rosuvastatin 10 mg tablet 10 mg PO DAILY metformin 500 mg tablet extended release 24 hr 500 mg PO BID cyanocobalamin (vitamin B-12) 1,000 mcg tablet 1,000 mcg PO DAILY loratadine 10 mg tablet 10 mg PO DAILY amlodipine 2.5 mg tablet 2.5 mg PO DAILY cholecalciferol (vitamin D3) 50 mcg (2,000 unit) capsule 50 mcg PO DAILY aspirin 81 mg tablet,chewable 81 mg PO DAILY rosuvastatin 5 mg tablet 10 mg PO DAILY topiramate 25 mg tablet 25 mg PO DAILY (DME) lancets [TRUEplus Lancets] 33 gauge misc See Rx Instructions Not Applicable BID Qty: 100 Rx Instructions: As directed (DME) blood pressure test kit-large Kit See Rx Instructions .ROUTE BID Qty: 1 Rx Instructions: As directed alcohol swabs [Alcohol Prep Pads] Pads, Medicated topical BID (DME) FreeStyle Lite Strips Strip See Rx Instructions Not Applicable BID Qty: 10 Rx Instructions: As directed (DME) blood-glucose meter [FreeStyle [place] Lite] Kit See Rx Instructions Not Applicable BID Qty: 1 Rx Instructions: As directed lisinopril 40 mg tablet 40 mg PO DAILY chlorthalidone 25 mg tablet 25 mg PO DAILY cholecalciferol (vitamin D3) 50 mcg (2,000 unit) tablet 50 mcg PO DAILY Interventions: ED Discharge Assessment Last Done: 09/05/24 14:40 Discharge Date/Time: 09/05/24 14:41 Print Language: Thai
[2024-09-05] MEDS: Ketorolac Tromethamine 30 MG/ML VIAL IM (11:49)
[2024-09-05 14:40] VITALS: BP 131/77; PULSE 70; RESP 18; TEMP 36.6; O2SAT 98
== END 2024-09-05 14:41 | disposition home or self-care (01) ==
PROVIDERS: Emergency Provider Emergency Medicine Emergency Medical Services; PCP Student in an Organized Health Care Education/Training Program
DX: M25.571 Pain in right ankle and joints of right foot (principal); Z79.899 Other long term (current) drug therapy
CPT/HCPCS: 73610; 73630; 96372; 99283; 99284; J1885

== ENCOUNTER 2024-10-06 09:20 | Outpatient (REF) | payer MEDICAID, SELFPAY ==
[2024-10-06 12:02] LABS: Alanine Aminotransferase 7 U/L (0-31); Albumin Level 4.2 g/dL (3.5-5.0); Alkaline Phosphatase 40 U/L (39-117); Anion Gap 13 (12-20); Aspartate Amino Transferase 27 U/L (5-31); Bilirubin Total 0.2 mg/dL (0.0-1.0); Blood Urea Nitrogen 17 mg/dL (9-16); Calcium 10.3 mg/dL (8.4-10.2); Carbon Dioxide 27 mmol/L (22-29); Chloride 105 mmol/L (96-108); Cholesterol 127 mg/dL (<200); Estimated Glomerular Filt Rate > 60; Glucose Random 110 mg/dL (60-115); HDL Cholesterol 40 mg/dL (>40); LDL Cholesterol Calculated 70 mg/dL (<100); Potassium 3.6 mmol/L (3.3-5.1); Sodium 141 mmol/L (135-145); Total Protein 8.1 g/dL (6.5-8.0); Triglycerides 87 mg/dL (<150); Uric Acid 7.5 mg/dL (2.4-5.7)
[2024-10-06 12:21] LABS: TSH reflex Free T4 1.02 uIU/mL (0.32-4.0)
== END 2024-10-06 09:21 | disposition home or self-care (01) ==
LOC: HO.HHCL 09:20
PROVIDERS: Visit Provider Student in an Organized Health Care Education/Training Program
DX: E78.00 Pure hypercholesterolemia, unspecified (principal); M25.473 Effusion, unspecified ankle
CPT/HCPCS: 36415; 80053; 80061; 84443; 84550

== ENCOUNTER 2024-10-14 14:24 | Outpatient (REF) | payer MEDICAID, SELFPAY | END 2024-10-14 14:25 | disposition home or self-care (01) | LOC: HO.US 14:24 | PROVIDERS: PCP Student in an Organized Health Care Education/Training Program; Visit Provider Obstetrics & Gynecology | DX: D25.9 Leiomyoma of uterus, unspecified (principal) | CPT/HCPCS: 76830; 76856 ==

== ENCOUNTER → 2024-10-14 14:26 | Outpatient (BNV) | payer MEDICAID, SELFPAY | PROVIDERS: PCP Student in an Organized Health Care Education/Training Program; Visit Provider Radiology Diagnostic Radiology | DX: D25.9 Leiomyoma of uterus, unspecified (principal); N85.00 Endometrial hyperplasia, unspecified; N83.202 Unspecified ovarian cyst, left side | CPT/HCPCS: 76830; 76856 ==

== ENCOUNTER 2025-07-10 08:31 | Outpatient (REF) | payer MEDICAID, SELFPAY ==
--- OUTSIDE RECORDS SUMMARY | 2025-07-10 09:31 | XMS_ITS | Clinical Summary ---
Author Organization [employer] Address [address] [facility] [address] [place] [address] Care Team Providers Care Mold Blower Name Role Phone Raiza Trujillo MD Primary Care Pro vider Allergies Active Allergy Reactions Criticality Noted Date Comments Gadolinium Rash Low 12/07/2010 Iodinated Contrast Media 01/17/2023 Shellfish Allergy Hives 12/07/2010 To shrimp Medications glucose blood (FREESTYLE LITE) test strip Use one strip twice a day to check blood sugar levels 11/25/19 22 Active omega-3 acid ethyl esters (Lovaza) 1 g capsuleIndicatio ns:Hypercholeste rolemia Take 2 capsules (2 g) by mouth 2 times daily. 360 capsule 3 05/23/20 23 Active cyanocobalamin (Vitamin B-12) 1000 MCG tabletIndication s:Vitamin B deficiency 1 tablet once daily 90 tablet 02/15/20 24 Active EPINEPHrine (Epipen) 0.3 MG/0.3ML injection syringe Inject 0.3 mL (0.3 mg) as directed 1 (one) time if needed for anaphylaxis. Inject into upper leg. Call 911 after use. 1 each 1 05/13/20 24 Active metFORMIN XR (Glucophage-XR) 500 MG 24 hr tabletIndication s:Impaired glucose tolerance Take 1 tab a day 90 tablet 05/13/20 24 Active cholecalciferol (D3-5) 5,000 Units tabletIndication s:Low vitamin D level 1 tablet once daily 90 tablet 1 07/02/20 24 Active sodium chloride ([place] Nasal [place]) 0.65 % nasal sprayIndications :Viral syndrome 1-2 sprays on each nostril every 2-3 hours as needed for nasal congestion 30 mL 1 07/30/20 24 Active rosuvastatin (Crestor) 40 MG tabletIndication s:Hypercholester olemia TAKE 1 TABLET DAILY 90 tablet 03/17/20 25 Active docusate sodium (Colace) 100 MG capsule TAKE 1 CAPSULE BY MOUTH TWICE DAILY NEEDED FOR CONSTIPATION 60 capsule 03/17/20 25 Active chlorthalidone (Hygroton) 25 MG tabletIndication s:Essential hypertension Take 1 tablet (25 mg) by mouth in the morning. 90 tablet 03/17/20 25 Active lisinopril 40 MG tabletIndication s:Essential hypertension Take 1 tablet (40 mg) by mouth in the morning. 90 tablet 03/17/20 25 Active amLODIPine (Norvasc) 10 MG tabletIndication s:Essential hypertension Take 1 tablet (10 mg) by mouth in the morning. 90 tablet 03/17/20 25 Active acetaminophen (Tylenol) 500 MG tabletIndication s:Periodontal disease,Dental abscess Take 1 tablet (500 mg) by mouth every 6 (six) hours if needed for mild pain. 20 tablet 03/26/20 25 Active psyllium (Metamucil Smooth Texture) 58.6 % powder Take 5.12 g (3 g of fiber) by mouth 2 times daily. 283 g 11 07/02/20 24 025 Active Problems Problem Noted Date Diagnosed Date Increased endometrial stripe thickness Ovarian cyst, complex 04/11/2025 Class 1 obesity 03/26/2025 Periodontal disease 03/26/2025 Dental abscess 03/26/2025 Ankle swelling 10/03/2024 Constipation 07/02/2024 Type 2 diabetes mellitus wit h other specified complication, unspecified whether long term care social worker insulin use 07/02/2024 Uterine fibroid 05/13/2024 Cholelithiasis 05/13/2024 Lung nodules 05/13/2024 Overweight (BMI 25.0-29.9) 05/13/2024 Health care maintenance 05/23/2023 Overview (05/23/2023): Routine Health Maintenance: Immunizations: Due Tdap, Covid Booster HIV: Ordered 05/23/23 Hep C: Non reactive 06/15/21 Hepatitis B: Non reactive surface antibodies 06/15/21 Pap Smear: 2019 NILM, HPV neg. Performed at [facility] [place] [place]. Repeat 2024. Mammogram: 10/15/21 BIRADS 2. R breast lumpectomy 2002 BMD: Consider d/t hx of chemo therapy Colonoscopy: Ordered 11/25/21, GI appt 12/19/21. Will task [place] to locate records Lung cancer: Never smoker Eye: Discuss next visit Dental: Discuss next visit Essential hypertension 06/27/2019 Overview (05/23/2023): Treatment: Amlodipine 10mg; chlorthalidone 25mg, lisinopril 40mg, and garlic supplement Educated pt to monitor for sx of hypertension: headache, dizziness, vision changes, SOB, chest pain, leg pain, or one sided weakness Assessment & Plan (05/23/2023 5:08 PM EDT): BP 142/80. Close to goal < 140/90 Continue medications Increase water intake to prevent dizziness and HTN/hypotension Repeat labs from 03/23/22 F/u 3 months with new PCP or sooner PRN Vitamin B deficiency 09/30/2012 Overview (05/23/2023): Normal 03/23/22 Treating Vit B12 1mg daily Assessment & Plan (05/23/2023 5:10 PM EDT): Order repeat level today 05/23/23 F/u 3 months with new PCP or sooner PRN Hypercholesterolemia 06/27/2012 Overview (05/23/2023): Lipid panel last 03/23/22 Treating Rosuvastatin 10 mg daily Fish oil Assessment & Plan (05/23/2023 5:09 PM EDT): Repeat lipid panel Continue Rosuvastatin Rx Lovaza 2g, BID F/u 3 months with new PCP or sooner PRN Migraine 06/27/2012 Resolved Problems Problem Noted Date Diagnosed Date Resolved Date Sore throat 07/30/2024 10/03/2024 Viral URI 07/30/2024 10/03/2024 Assessment & Plan (07/30/2024 6:23 PM EDT): Neg infectious URI rapid tests today. Use NS prn nasal congestion + Flonase nasal spray daily x 1w Rest (sleep at least 8 hours a night). Advised to be out of work for at least 2d and/or wear a mask at all times x 5d. Should re test for Covid if sxs continue after 48h, I gave her covid test kit Hydrate with plenty of water (avoid caffeine and alcohol). Take Acetaminophen (Tylenol )/Ibuprofen as needed to reduce fever, headache, body aches or discomfort Gargle with salt water and use throat sprays/lozenges for throat pain. Use heated, humidified air. If you do not have a humidifier, take hot showers. Cover coughs and sneezes using the crook of your elbow. If you have a fever, stay home and away from others (self isolation) until fever-free for 72 hours (temperature should be less than 100 F without medication). Patient will call surgical office to cancel tomorrow's surgery. She will test for covid again if she develops fever/chills or SOB. Food insecurity 05/13/2024 10/03/2024 Other chest pain 05/23/2023 05/13/2024 Overview (05/23/2023): Chest pain seen at ED 12/19/22 Followed Cardiology 02/01/22: pleasant 61-year-old female here for assessment of chest pain. She had 1 episode of chest pain which was a pressure and burning sensation radiating to the left arm. Her blood pressure previously was elevated but appears to be better controlled now. Continue same medications for now. Will arrange an exercise stress test for her. 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 Patient is advised to call that office tomorrow morning to fu with them for rs. Depressive disorder 06/27/2012 05/13/20 24 Encounters Date Type Department Care Team Description 07/07/2025 Travel 07/02/2025 Telephone [facility] [address] [place] [phone] Amish Jerez DDS rs extraction with Dr. Jerez 05/28/[address] [address] Raiza Trujillo MD Referral 05/19/2025 Telephone [facility] [address] [place] [phone] Amish Jerez DDS cx and will call to reschedule appt 04/24/[address] [address] Jennifer Arora RN 04/16/[address] [address] Raiza Trujillo MD Referral 04/10/2025 11:30 AM EDT Office Visit [address] [address] Raiza Trujillo MD Type 2 diabetes mellitus without complication, without long-term current use of insulin (CMS/HCC) (Primary Dx); Dietary counseling; Exercise counseling; Type 2 diabetes mellitus with other specified complication, unspecified whether fpc insulin use (CMS/HCC); Essential hypertension; Overweight (BMI 25.0-29.9); Uterine leiomyoma, unspecified location; Health care maintenance; Lung nodules; Increased endometrial stripe thickness; Ovarian cyst, complex 04/10/2025 Travel 04/09/[address] [address] Raiza Trujillo MD Chart Prep; Referral from Last 3 Months Immunizations Immunization Administration Dates Next Due Influenza injectable quadriv alent IIV4 with preservative 09/12/2018,07/30/2015 Influenza, IIV3, injectable 12/18/2014 Influenza, Split (incl. purified surface antigen ) 09/30/2013 Pfizer Covid-19 Vaccine 12+ 08/23/2021, Pneumococcal Polysaccharide PPSV23 11/10/2011 Tdap 05/13/2024,11/10/2011 Family History Medical History Relation Name Comments 2nd dister uterine ca Sister Breast cancer Sister Relation Name Status Comments Sister Social History Tobacco Use Types Packs/Day Years Used Date Smoking Tobacco: Never Passive Smoke Exposure: Never Smokeless Tobacco: Never Tobacco Cessation:Counseling Given: Not Answered Alcohol Use Standard Drinks/Week Comments Never 0 (1 standard drink = 0.6 oz pur e alcohol) Depression Answer Date Recorded Patient Health Questionnaire-9 Score 1 05/13/2024 Patient Health Questionnaire-9 Score 1 05/13/2024 Last PHQ-9: Questionnaire Data Not on file 0 05/13/2024 Housing Stability Answer Date Recorded What is your housing situation today? I have erick stevens 05/05/[address] you li ve. Do you have problems with any of the following? None of the above 05/05/2024 Food Insecurity Answer Date Recorded Within the past 12 months, y ou worried that your food would run out before you got money to buy more: Never True 05/05/2024 Within the past 12 months,th e food you bought just didn't last and you didn't have enough money to get more: Never True Transportation Answer Date Recorded In the past 12 months, has l ack of transportation kept you from medical appts, meetings, work or from getting things needed for daily living? No 05/05/2024 Utilities Answer Date Recorded In the past 12 months, has t he electric, gas, oil or water company threatened to shut off services in your home? No 05/05/2024 Depression Answer Date Recorded Patient Health Questionnaire-2 Score 0 05/13/2024 Internet Access Answer Date Recorded Internet Access Q1 Yes 07/14/2024 Internet Access Q2 Not on file 07/14/2024 Comments Unknown Sex and Gender Information Value Date Recorded Sex Assigned at Female 09/11/2022 10:15 AM EDT Legal Sex Female 10:15 AM EDT Gender Identity Female 09/11/2022 10:15 AM EDT Sexual Orientation Straight 09/11/2022 10 :15 AM EDT Last Filed Vital Signs Vital Sign Reading Time Taken Comments Blood Pressure 120/62 04/10/2025 11:52 AM EDT Pulse 82 04/10/2025 11:52 AM EDT Temperature 36.5 C (97.7 F) 04/10/2025 11:52 AM EDT Respiratory Rate 20 04/10/2025 11:52 AM EDT Oxygen Saturation 98% 04/10/2025 11:52 AM EDT Inhaled Oxygen Concentration - - Weight 65.4 kg (144 lb 3.2 oz) 04/10/2025 11:52 AM EDT Height 149.9 cm (4' 11 ) 04/10/2025 11:52 AM EDT Body Mass Index 29.12 04/10/2025 11:52 AM EDT Plan of Treatment Upcoming Encounters Date Type Department Care Team (Late st Contact Info) Description 07/15/2025 10:00 AM EDT Office Visit [facility] [address] [place] [address] Raiza Trujillo MD [address] [place] [address] 08/06/2025 8:00 AM EDT Office Visit [facility] [address] [place] [address] Amish Jerez DDS [address] [place] [address] 11/16/2025 11:00 AM EST Office Visit [facility] [address] [place] [address] Khushboo Mondragon, OD [address] [place] [address] Health Maintenance Due Date Last Done Comments CT Colonography 1962 Colonoscopy 1962 Colorectal Cancer Screening 1962 FIT DNA/Cologuard 1962 FIT 1962 FOBT 1962 Sigmoidoscopy 1962 Diabetes: Foot Exam 1972 Zoster Vaccines (1 of 2) 2012 Pneumococcal Vaccine: 50+ Years (2 of 2 - PCV) 11/10/2012 11/10/2011 Dental Oral Exam 06/09/2020 12/09/2019 Dental Prophylaxis 07/19/2020 01/16/2020 Dental X-Ray: Full Mouth 12/10/2022 12/09/2019 COVID-19 Vaccine ( - season) 2024 08/23/2021, 08/02/2021 Diabetes: Urine Protein Screening 02/18/2025 02/19/2024 Depression Screening 05/13/2025 05/13/2024, 05/13/20 24 Cervical Cancer Screening 07/07/2025 HPV/Cotest 07/07/2025 07/07/2020 Pap Smear 07/07/2025 07/07/2020 Influenza Vaccine (#1) 2025 8, 07/30/2015, 12/18/2014, Additional history exists Alcohol/Substance Use Screening 10/03/2025 10/03/2024 Lipid Panel 10/06/2025 10/06/2024, 0803/2024, 05/28/2023, Additional history exists Diabetes: Hemoglobin A1C 10/11/2025 025, 06/26/2024, 02/19/2024, Additional history exists Eye Exam 03/13/2026 03/13/2024, 0512/2023, 03/13/2024, Additional history exists Dental X-Ray: Bitewings 03/27/2026 03/26/2025, 12/09 SDOH Screening 04/02/2026 04/02/2025 Disability Screening 04/10/2026 04/10/2025 Tobacco Screening 04/10/2026 04/10/2025 DTaP/Tdap/Td Vaccines (3 - Td or Tdap) 05/13/2034 05/13/2024, 11/10/2011 RSV Patients and Patients Aged 60 years or older (1 - 1-dose 75+ series) 2037 HIV Screening Completed 06/26/2024, 05/28/2023 Hepatitis C Screening Completed 06/26/2024, 021 HIB Vaccines Aged Out No longer eligi ble based on patient's age to complete this topic HPV Vaccines Aged Out No longer eligi ble based on patient's age to complete this topic Hepatitis A Vaccines Aged Out No long er eligible based on patient's age to complete this topic Hepatitis B Vaccines Aged Out No long er eligible based on patient's age to complete this topic IPV Vaccines Aged Out No longer eligi ble based on patient's age to complete this topic Meningococcal B Vaccine Aged Out No l onger eligible based on patient's age to complete this topic Meningococcal Vaccine Aged Out No kamran fabian eligible based on patient's age to complete this topic RSV under 20 months Aged Out No longe r eligible based on patient's age to complete this topic Rotavirus Vaccines Aged Out No longer eligible based on patient's age to complete this topic Procedures Procedure Name Priority Date/Time Associated Diagnosis Comments POCT GLYCATED HEMOGLOBIN, TOTAL Routine 04/10/2025 11:56 AM EDT Type 2 diabetes mellitus without complication, without long-term current use of insulin ([facility]) POCT GLUCOSE Routine 04/10/2025 11:55 AM EDT Type 2 diabetes mellitus without complication, without long-term current use of insulin ([facility]) BITEWING - SINGLE RADIOGRAPHIC IMAGE Routine 03/26/2025 11:30 AM EDT LIPID PANEL, STANDARD Routine 10/06/2024 9:25 AM EST Hypercholesterolemia HEPATITIS C AB W/REFL TO HCV RNA, QN, PCR Routine 06/26/2024 10:00 AM EDT Annual physical exam HIV 1/2 ANTIGEN/ANTIBODY, FOURTH GENERATION W/RFL Routine 06/26/2024 10:00 AM EDT Annual physical exam ALBUMIN, RANDOM URINE W/CREATININE Routine 02/19/2024 8:42 AM EDT Essential hypertension HM PAP/HPV Routine 07/07/2020 PROPHYLAXIS - ADULT Routine 01/16/2020 1 2:00 AM EST INTRAORAL - COMPLETE SERIES OF RADIOGRAPHIC IMAGES Routine 12/09/2019 12:00 AM EST COMPREHENSIVE ORAL EVALUATION - NEW OR ESTABLISHED PATIENT Routine 12/09/2019 12:00 AM EST from Last 3 Months or Most Recently Relevant to Health Maintenance Results * POCT HGB A1C (04/10/2025 11:56 AM EDT) Pathologist [facility] Hemoglobin A1C 5.7 4.0 - 6.0 % QC Media Lot # [id number] Lot# Expiration Date Blood 04/10/2025 11:5 6 AM EDT Raiza Grant MD POINT OF CARE CHRISTIANO T ENTER/EDIT ORDERABLES Final Result * (ABNORMAL) POCT Glucose (04/10/2025 11:55 AM EDT) [facility] Glucose Blood, POC 146(A) 60 - 200 mg/dL QC Media Lot # [id number] Lot# Expiration Date Blood Capillary blood specimen / Unknown 04/10/2025 11:55 AM EDT Raiza Grant MD POINT OF CARE CHRISTIANO T ENTER/EDIT ORDERABLES Final Result * (ABNORMAL) Lipid Panel, Standard (10/06/2024 9:25 AM EST) [facility] Triglycerides 87 <150 mg/dL [facility] Comment:Desirable Triglyceri de: less than 150 mg/dLBorderline High Triglyceride 150-199 mg/dLHigh Triglyceride: 200-499 mg/dLVery High Triglyceride: greater than or equal to 5OO mg/dL Cholesterol 127 <200 mg/dL [facility] Comment:Desirable Cholestero l: less than 200 mg/dLBorderline High Cholesterol: 200-239 mg/dLHigh Cholesterol: greater than 239 mg/dL LDL Cholesterol Calculated 70 <100 mg/dL [facility] Comment:Desirable LDL: less than 100 mg/dLNear Optimal/Above Optimal LDL: 110- 129 mg/dLBorderline High LDL: 130-159 mg/dLHigh LDL: 160-189 mg/dLVery High LDL: greater than or equal to 190 mg/dL HDL Cholesterol 40(L) >40 mg/dL [facility] Comment:Desirable HDL: great er than 40 mg/dL Note: This HDL assay may give artificially low results in patients with liver disease. Blood Venous blood specimen / Unknown 10/06/2024 9:25 AM EST 10/06/2024 11:17 AM EST us Raiza Grant MD LAB BLOOD ORDERAB LES Final Result Performing Organization Address [facility]/ZIP Co de Phone Number [facility] [address] [place] [phone] * Hepatitis C Antibody with Reflex to HCV, RNA, Quantitative, Real-Time PCR (06/26/2024 10:00 AM EDT) Pathologist [facility] Hepatitis C Antibody Nonreactive Nonreactive [facility] Comment:Antibodies to HCV no t detected; does not exclude early acuteHCV infection. Blood Venous blood specimen / Unknown 06/26/2024 10:00 AM EDT 06/26/2024 11:18 AM EDT us Raiza Grant MD LAB BLOOD ORDERAB LES Final Result Performing Organization Address [facility] Co de Phone Number [facility] [address] [place] [phone] * HIV-1/2 Antigen and Antibodies, Fourth Generation, with Reflexes (06/26/2024 10:00 AM EDT) Pathologist [facility] HIV AB/AG Nonreactive Nonreactive [facility] Comment:HIV-1 p24 Ag and/or HIV-1/HIV-2 Ab not detected.A test result that is nonreactive does not exclude thepossibility of exposure to or infection with HIV-1 and/orHIV-2. Nonreactive results in this assay for individualswith prior exposure to HIV-1 and/or HIV-2 may be due toantigen and antibody levels that are below the limit ofdetection of this assay.The [employer] HIV Ag/Ab Combo assay result andsupplemental assay results should be interpreted inconjunction with the patient's clinical presentation,history and other laboratory results. If the results areinconsistent with clinical evidence, additional testing issuggested to confirm the result. Blood Venous blood specimen / Unknown 06/26/2024 10:00 AM EDT 06/26/2024 11:18 AM EDT Raiza Grant MD LAB BLOOD ORDERAB LES Final Result Performing Organization Address [facility] Co de Phone Number [facility] [address] [place] [phone] * (ABNORMAL) Albumin, Random Urine W/Creatinine (02/19/2024 8:42 AM EDT) Creatinine, Urine 60.93 mg/dL [facility] Microalbumin Urine 54.0 mg/L [facility] Microalbum Creatinine Ratio Ur 88.6(H) <30 ug/mg cr [facility] Comment:Albumin/Creatinine R atio Reference Ranges: Normal: < 30 ug/mg creatinine Microalbuminuria: 30 - 300 ug/mg creatinineClinical Albuminuria: > 300 ug/mg creatinine Urine 02/19/2024 8:42 AM EDT 02/19/2024 11:20 AM EDT Johana REYNOSO LAB URINE ORDERABLES Final Resul t Performing Organization Address [facility] Co de Phone Number [facility] [address] [place] [phone] * Hm Pap Smear (07/07/2020) Pap Negative for intraephithelial lesion or malignancy Negative for intraephithelial lesion or malignancy, Other HPV Not Detected Undetected, Indeterminate, Quantitative, Not Detected Historical Provider HEALTH MAINTENANCE Final Result from Last 3 Months or Most Recently Relevant to Health Maintenance Insurance * Guarantor: Bere Rankin Capa Account Type Relation to Patient Date of Phone Billing Address Personal/Family Self [address] [place] [address] [place] MEDICAID STAND ADULT Care Teams Mold Blower Relationship Specialty Start Date End Date Raiza Trujillo MD [address] [place] [phone] PCP - General Internal Medicine 08/21/23
--- OUTSIDE RECORDS SUMMARY | 2025-07-10 09:31 | XMS_ITS | Encounter Summary ---
Author Organization [employer] Address [address] [facility] 7t [place] [address] Care Team Providers Care Wood Inspector Name Role Phone Raiza Trujillo MD Primary Care Pro vider Reason for Visit * Reason Onset Date Comments Appointment Request 02/12/2024 Encounter Details Date Type Department Care Team ([facility] st Contact Info) Description 02/12/2024 Telephone [facility] MEDICINE [address] [place] [address] Raiza Trujillo MD [address] [place] [address] Appointment Request Social History Tobacco Use Types Packs/Day Years Used Date Smoking Tobacco: Never Smokeless Tobacco: Never Alcohol Use Standard Drinks/Week Comments Never 0 (1 standard drink = 0.6 oz pur e alcohol) Depression Answer Date Recorded Patient Health Questionnaire-9 Score 0 11/14/2022 Housing Stability Answer Date Recorded What is your housing situation today? I have erick stevens 09/03/[address] you li ve. Do you have problems with any of the following? None of the above 09/03/2023 Food Insecurity Answer Date Recorded Within the past 12 months, y ou worried that your food would run out before you got money to buy more: Never True 09/03/2023 Within the past 12 months,th e food you bought just didn't last and you didn't have enough money to get more: Never True Transportation Answer Date Recorded In the past 12 months, has l ack of transportation kept you from medical appts, meetings, work or from getting things needed for daily living? No 09/03/2023 Utilities Answer Date Recorded In the past 12 months, has t he electric, gas, oil or water company threatened to shut off services in your home? No 09/03/2023 Depression Answer Date Recorded Patient Health Questionnaire-2 Score 0 11/14/2022 Comments Unknown Sex and Gender Information Value Date Recorded Sex Assigned at Female 09/11/2022 10:15 AM EDT Legal Sex Female 10:15 AM EDT Gender Identity Female 09/11/2022 10:15 AM EDT Sexual Orientation Straight 09/11/2022 10 :15 AM EDT documented as of this encounter Miscellaneous Notes * Telephone Encounter - Galindo Aguillon - 02/12/2024 1:49 PM EDT Tc from patient requesting appt with the provider but is in need of a TP appt documented in this encounter Plan of Treatment Upcoming Encounters Date Type Department Care Team (Late st Contact Info) Description 07/15/2025 10:00 AM EDT Office Visit [facility] MEDICINE [address] [place] [address] Raiza Trujillo MD [address] [place] [address] 08/06/2025 8:00 AM EDT Office Visit [facility] ADULT DENTAL [address] [place] [address] Amish Jerez DDS [address] [place] [address] 11/16/2025 11:00 AM EST Office Visit [facility] OPTOMETRY [address] [place] [address] Khushboo Mondragon OD [address] [place] [address] documented as of this encounter Visit Diagnoses Not on filedocumented in this encounter Additional Health Concerns Assessment Noted Time PHQ-9 Depression Total Score: 0 11/14/19 23 3:12 PM EST documented as of this encounter Care Teams Wood Inspector Relationship Specialty Start Date End Date Raiza Trujillo MD [address] [place] [address] PCP - General Internal Medicine 08/21/23 documented as of this encounter
--- OUTSIDE RECORDS SUMMARY | 2025-07-10 09:31 | XMS_ITS | Encounter Summary ---
Author Organization [employer] Address [address] [facility] 7t [place] [address] Care Team Providers Care Operations Superintendent Name Role Phone Sebastian Bronwyn Romi PLASTIC EXTRUSION OPERATOR Primary Care Provider Raiza Adams MD Primary Care Pro vider Encounter Details Date Type Department Care Team (Latest Contact Info) Description 01/16/2020 Abstract [facility] CONVERSIONS Dental, Provider, DDS Social History Tobacco Use Types Packs/Day Years Used Date Smoking Tobacco: Never Assessed Comments Unknown Sex and Gender Information Value Date Recorded Sex Assigned at Female 09/11/2022 10:15 AM EDT Legal Sex Female 10:15 AM EDT Gender Identity Female 09/11/2022 10:15 AM EDT Sexual Orientation Straight 09/11/2022 10 :15 AM EDT documented as of this encounter Plan of Treatment Upcoming Encounters Date Type Department Care Team (Late st Contact Info) Description 07/15/2025 10:00 AM EDT Office Visit [facility] MEDICINE [address] [place] [address] Raiza Trujillo MD [address] [place] [address] 08/06/2025 8:00 AM EDT Office Visit [facility] ADULT DENTAL [address] [place] [address] Amish Jerez DDS [address] [place] [address] 11/16/2025 11:00 AM EST Office Visit [facility] OPTOMETRY [address] [place] [address] Khushboo Mondragon, OD [address] [place] [address] documented as of this encounter Visit Diagnoses Not on filedocumented in this encounter Care Teams Operations Superintendent Relationship Specialty Start Date End Date Bronwyn Cortes FNP PCP - General Family Medicine 09/02/21 08/20/23 Raiza Trujillo MD [address] [place] [address] [phone] PCP - General Internal Medicine 08/21/23 documented as of this encounter
--- OUTSIDE RECORDS SUMMARY | 2025-07-10 09:31 | XMS_ITS | Encounter Summary ---
Author Organization [employer] Address [address] [facility] [address] 7t [place] [address] Care Team Providers Care Product Safety Lead Name Role Phone Raiza Trujillo MD Primary Care Pro vider Reason for Visit * Reason Onset Date Comments cx and will call to reschedule appt 05/19/2025 Encounter Details Date Type Department Care Team (Late st Contact Info) Description 05/19/2025 Telephone [facility] ADULT DENTAL [address] [place] [address] Amish Jerez DDS [address] [place] [address] cx and will call to reschedule appt Social History Tobacco Use Types Packs/Day Years Used Date Smoking Tobacco: Never Passive Smoke Exposure: Never Smokeless Tobacco: Never Alcohol Use Standard Drinks/Week Comments Never 0 (1 standard drink = 0.6 oz pur e alcohol) Depression Answer Date Recorded Patient Health Questionnaire-9 Score 1 05/13/2024 Patient Health Questionnaire-9 Score 1 05/13/2024 Last PHQ-9: Questionnaire Data Not on file 0 05/13/2024 Housing Stability Answer Date Recorded What is your housing situation today? I have erick hilda 05/05/[address] you li [...] encounter Miscellaneous Notes * Telephone Encounter - Afshan Padron - 05/19/2025 3:58 PM EDT Cx appt on 05/27 for extraction due. Has to travel emergency to [place] advised by [facility] senior front end engineer to call upon return to reschedule appt as schedule for provider was not available past the end documented in this encounter Plan of Treatment Upcoming Encounters Date Type Department Care Team (Late st Contact Info) Description 07/15/2025 10:00 AM EDT Office Visit [facility] MEDICINE [address] [place] [address] Raiza Trujillo MD [address] [place] [address] 08/06/2025 8:00 AM EDT Office Visit [facility] ADULT DENTAL [address] [place] [address] Amish Jerez DDS [address] [place] [address] 11/16/2025 11:00 AM EST Office Visit [facility] OPTOMETRY [address] [place], [place] [phone] Khushboo Mondragon, OD [address] [place], [place] [phone] documented as of this encounter Visit Diagnoses Not on filedocumented in this encounter Additional Health Concerns Assessment Noted Time PHQ-9 Depression Total Score: 1 05/13/20 24 10:42 AM EDT documented as of this encounter Care Teams Product Safety Lead Relationship Specialty Start Date End Date Raiza Trujillo MD [address] [place] [address] [phone] PCP - General Internal Medicine 08/21/23 documented as of this encounter
--- OUTSIDE RECORDS SUMMARY | 2025-07-10 09:31 | XMS_ITS | Encounter Summary ---
Author Organization [employer] Address [address] [facility] [address] 7[address] [place] [address] Care Team Providers Care Entry Level Electrician Name Role Phone Raiza Trujillo MD Primary Care Pro vider Encounter Details Date Type Department Care Team (Latest Contact Info) Description 07/07/2025 Travel Social History Tobacco Use Types Packs/Day Years [...] Description 07/15/2025 10:00 AM EDT Office Visit [facility] MEDICINE [address] [place] [address] Raiza Trujillo MD [address] [place] [address] 08/06/2025 8:00 AM EDT Office Visit [facility] ADULT DENTAL [address] [place] [address] Amish Jerez DDS [address] [place] [address] 11/16/2025 11:00 AM EST Office Visit [facility] OPTOMETRY [address] [place] [address] Khushboo Mondragon, OD [address] [place] [address] documented as of this encounter Visit Diagnoses Not on filedocumented in this encounter Additional Health Concerns Assessment Noted Time PHQ-9 Depression Total Score: 1 05/13/20 24 10:42 AM EDT documented as of this encounter Care Teams Entry Level Electrician Relationship Specialty Start Date End Date Raiza Trujillo MD [address] [place] [phone] PCP - General Internal Medicine 08/21/23 documented as of this encounter
--- OUTSIDE RECORDS SUMMARY | 2025-07-10 09:31 | XMS_ITS | Encounter Summary ---
Author Organization [employer] Address [address] [facility] [address] 7[address] [place] [address] Care Team Providers Care Wrist Hemmer Name Role Phone Raiza Trujillo MD Primary Care Pro vider Encounter Details Date Type Department Care Team (Late st Contact Info) Description 12/26/2023 Orders Only [facility] MEDICINE [address] [place] [address] ProviderRudy MD Social History Tobacco Use Types Packs/Day Years [...] Description 07/15/2025 10:00 AM EDT Office Visit [facility] MEDICINE [address] [place] [address] Raiza Trjuillo MD [address] [place] [address] 08/06/2025 8:00 AM EDT Office Visit [facility] ADULT DENTAL [address] [place] [address] Amish Jerez DDS [address] [place] [address] 11/16/2025 11:00 AM EST Office Visit [facility] OPTOMETRY [address] [place] [address] Khushboo Mondragon, OD [address] [place] [address] documented as of this encounter Visit Diagnoses Not on filedocumented in this encounter Additional Health Concerns Assessment Noted Time PHQ-9 Depression Total Score: 0 11/14/19 23 3:12 PM EST documented as of this encounter Care Teams Wrist Hemmer Relationship Specialty Start Date End Date Raiza Trujillo MD [address] [place] [address] PCP - General Internal Medicine 08/21/23 documented as of this encounter
[2025-07-10 12:44] LABS: Hemoglobin A1C 122.3835 umol/L; Total Hemoglobin (HGBA1C) 3334.6999 umol/L
[2025-07-10 13:04] LABS: Alanine Aminotransferase 10 U/L (0-31); Albumin Level 4.5 g/dL (3.5-5.0); Alkaline Phosphatase 39 U/L (39-117); Anion Gap 13 (12-20); Aspartate Amino Transferase 29 U/L (5-31); Blood Urea Nitrogen 15 mg/dL (9-16); Calcium 10.2 mg/dL (8.4-10.2); Carbon Dioxide 30 mmol/L (22-29); Chloride 104 mmol/L (96-108); Cholesterol 138 mg/dL (<200); Estimated Glomerular Filt Rate 58; HDL Cholesterol 43 mg/dL (>40); Potassium 3.3 mmol/L (3.3-5.1); Sodium 144 mmol/L (135-145); Total Protein 8.4 g/dL (6.5-8.0); Triglycerides 84 mg/dL (<150); Uric Acid 7.5 mg/dL (2.4-5.7)
[2025-07-10 13:19] LABS: Microalbum/Creatinine Ratio Ur 27.4 ug/mg cr (<30)
[2025-07-10 13:41] LABS: Folate 10.2 ng/mL (> or = 4.0); Vitamin B12 819 pg/mL (200-900)
== END 2025-07-10 08:32 | disposition home or self-care (01) ==
LOC: HO.HHCL 08:31
PROVIDERS: PCP Student in an Organized Health Care Education/Training Program; Visit Provider Student in an Organized Health Care Education/Training Program
DX: E11.9 Type 2 diabetes mellitus without complications (principal)
CPT/HCPCS: 36415; 80053; 80061; 82043; 82306; 82570; 82607; 82746; 83036; 84550

== ENCOUNTER 2025-07-15 10:57 | Outpatient (REF) | payer MEDICAID, SELFPAY ==
--- NOTE | ~2025-07-15 | XR_ITS ---
EXAMINATION: XR LUMBOSACRAL SPINE CLINICAL INFORMATION: ongoing lower back pain COMPARISON: None available. TECHNIQUE: Three views of the lumbosacral spine. FINDINGS: There is a mild levoconvex scoliosis, apex at L3. There is a normal lumbar lordosis. There is no subluxation. There is no fracture, compression deformity, or suspicious bone lesion. There is normal facet alignment bilaterally. No subluxations. Mild facet degenerative change spanning L4-S1. There is mild disc degeneration diffusely. There are ventral disc osteophytes at L1-L2 and L2-L3. Soft tissues appear normal. XR/XR lumbar spine 2-3V IMPRESSION: 1. No acute findings of the lumbosacral spine. 2. Mild degenerative spondylosis and minimal levoconvex scoliosis. Electronically signed by: Neel Escamilla MD 07/15/2025 12:49 PM EDT
== END 2025-07-15 10:58 | disposition home or self-care (01) ==
LOC: HO.HHCX 10:57
PROVIDERS: Visit Provider Student in an Organized Health Care Education/Training Program
DX: M54.50 Low back pain, unspecified (principal)
CPT/HCPCS: 72100

== ENCOUNTER → 2025-07-15 10:57 | Outpatient (BNV) | payer MEDICAID, SELFPAY | PROVIDERS: Visit Provider Radiology Diagnostic Radiology | DX: M47.816 Spondylosis without myelopathy or radiculopathy, lumbar region (principal) | CPT/HCPCS: 72100 ==

== ENCOUNTER 2025-09-25 09:54 | Outpatient (REF) | payer MEDICAID, SELFPAY ==
--- NOTE | ~2025-09-25 | US_ITS ---
CLINICAL HISTORY: pt w hx stones in GB seen in previous CT scan to eval US abdomen complete Comparison: None provided Findings: The visualized pancreas is normal. The aorta and inferior vena cava are normal caliber. The liver is normal in size and echotexture. The liver is 14.8 cm in length. There is no intrahepatic bile duct dilatation. The common duct is 2.0 mm in diameter. There are multiple gallstones. The gallbladder is otherwise normal. There is no sonographic Casas sign. The main portal vein is antegrade. The right kidney is 10.5 cm in length. The left kidney is 9.5 cm in length. The spleen is normal. No ascites. IMPRESSION: 1. Cholelithiasis. This document has been electronically signed by: Art Solitario MD on 09/26/2025 10:09:08
--- OUTSIDE RECORDS SUMMARY | 2025-09-25 11:26 | XMS_ITS | Encounter Summary ---
Author Organization [employer] Address [address] [facility] 7t [place] [address] Care Team Providers Care Machine Operator Packaging Name Role Phone Raiza Trujillo MD Primary Care Pro vider Reason for Visit * Reason Onset Date Comments Appointment Request 02/12/2024 Encounter Details Date Type Department Care Team ([facility] st Contact Info) Description 02/12/2024 Telephone [facility] MEDICINE [address] [place] [address] Raiza Trujillo MD [address] [place] [address] Appointment Request Social History Tobacco Use Types [...] Care Team (Late st Contact Info) Description 11/16/2025 11:00 AM EST Office Visit [facility] OPTOMETRY [address] [place] [address] TarKhushboo benitez, OD [address] [place] [address] 11/27/2025 9:45 AM EST Office Visit [facility] MEDICINE [address] [place] [address] Raiza Trujillo MD [address] [place] [address] documented as of this encounter Visit Diagnoses Not on filedocumented in this encounter Additional Health Concerns Assessment Noted Time PHQ-9 Depression Total Score: 0 11/14/19 3:12 PM EST documented as of this encounter Care Teams Machine Operator Packaging Relationship Specialty Start Date End Date Raiza Trujillo MD [address] [place] [phone] PCP - General Internal Medicine 08/21/23 documented as of this encounter
--- OUTSIDE RECORDS SUMMARY | 2025-09-25 11:26 | XMS_ITS | Encounter Summary ---
Author Organization [employer] [facility] Address [address] [facility] 7t [place] [address] Care Team Providers Care Mica Laminating Machine Feeder Name Role Phone Bronwyn Cortes CONSUMER ATTORNEY Primary Care Provider Raiza Adams MD Primary Care Pro vider Encounter Details Date Type Department Care Team (Latest Contact Info) Description 01/16/2020 Abstract [facility] CONVERSIONS Dental, Provider, DDS Social History Tobacco [...] Description 11/16/2025 11:00 AM EST Office Visit [facility] OPTOMETRY [address] [place] [address] Khsuhboo Mondragon, OD [address] [place] [address] 11/27/2025 9:45 AM EST Office Visit [facility] MEDICINE [address] [place] [address] Raiza Trujillo MD [address] [place] [address] documented as of this encounter Visit Diagnoses Not on filedocumented in this encounter Care Teams Mica Laminating Machine Feeder Relationship Specialty Start Date End Date Bronwyn Cortes FNP PCP - General Family Medicine 09/02/21 08/20/23 Raiza Trujillo MD [address] [place] [address] PCP - General Internal Medicine 08/21/23 documented as of this encounter
--- OUTSIDE RECORDS SUMMARY | 2025-09-25 11:26 | XMS_ITS | Encounter Summary ---
Author Organization [employer] Address [address] [facility] [address] 7[address] [place] [address] Care Team Providers Care Science Technician Name Role Phone Raiza Trujillo MD Primary Care Pro vider Reason for Visit * Reason Onset Date Comments cx and will call to reschedule appt 05/19/2025 Encounter Details Date Type Department Care Team (Late st Contact Info) Description 05/19/2025 Telephone [facility] ADULT DENTAL [address] [place] [address] Amish Jerez DDS [address] [place] [address] cx and will call to reschedule appt [...] extraction due. Has to travel emergency to [place] advised by [facility] frontload driver to call upon return to reschedule appt as schedule for provider was not available past the end documented in this encounter Plan of Treatment Upcoming Encounters Date Type Department Care Team (Late st Contact Info) Description 11/16/2025 11:00 AM EST Office Visit [facility] OPTOMETRY [address] [place] [address] Khushboo Mondragon, MALIK [address] [place] [address] 11/27/2025 9:45 AM EST Office Visit [facility] MEDICINE [address] [place] [address] Raiza Trujillo MD [address] [place] [address] documented as of this encounter Visit Diagnoses Not on filedocumented in this encounter Additional Health Concerns Assessment Noted Time PHQ-9 Depression Total Score: 1 05/13/20 24 10:42 AM EDT documented as of this encounter Care Teams Science Technician Relationship Specialty Start Date End Date Raiza Trujillo MD [address] [place] [id number] PCP - General Internal Medicine 08/21/23 documented as of this encounter
--- OUTSIDE RECORDS SUMMARY | 2025-09-25 11:26 | XMS_ITS | Clinical Summary ---
Author Organization [employer] Address [address] [facility] [address] [place] [address] Care Team Providers Care Quality Assistant Name Role Phone Raiza Trujillo MD Primary Care Pro vider Allergies Active Allergy Reactions Criticality Noted Date Comments Gadolinium Rash Low 12/07/2010 Iodinated Contrast Media 01/17/2023 Shellfish Allergy Hives 12/07/2010 To shrimp Medications glucose blood (FREESTYLE LITE) test strip Use one strip twice a day to check blood sugar levels 2 Active omega-3 acid ethyl esters (Lovaza) 1 g capsuleIndication s:Hypercholestero lemia Take 2 capsules (2 g) by mouth 2 times daily. 360 capsule 3 3 Active EPINEPHrine (Epipen) 0.3 MG/0.3ML injection syringe Inject 0.3 mL (0.3 mg) as directed 1 (one) time if needed for anaphylaxis. Inject into upper leg. Call 911 after use. 1 each 1 4 Active sodium chloride ([place] Nasal [place]) 0.65 % nasal sprayIndications: Viral syndrome 1-2 sprays on each nostril every 2-3 hours as needed for nasal congestion 30 mL 1 4 Active acetaminophen (Tylenol) 500 MG tabletIndications :Periodontal disease,Dental abscess Take 1 tablet (500 mg) by mouth every 6 (six) hours if needed for mild pain. 20 tablet 5 Active amLODIPine (Norvasc) 10 MG tabletIndications :Essential hypertension Take 1 tablet (10 mg) by mouth in the morning. 90 tablet 5 Active chlorthalidone (Hygroton) 25 MG tabletIndications :Essential hypertension Take 1 tablet (25 mg) by mouth in the morning. 90 tablet 5 Active lisinopril 40 MG tabletIndications :Essential hypertension Take 1 tablet (40 mg) by mouth in the morning. 90 tablet 5 Active rosuvastatin (Crestor) 40 MG tabletIndications :Hypercholesterol emia Take 1 tablet (40 mg) by mouth Once per day. 90 tablet 5 Active metFORMIN XR (Glucophage-XR) 500 MG 24 hr tabletIndications :Impaired glucose tolerance Take 1 tab a day 90 tablet 5 Active cholecalciferol (D3-5) 5,000 Units tabletIndications :Low vitamin D level 1 tablet once daily 90 tablet 1 5 Active cyanocobalamin (Vitamin B-12) 1000 MCG tabletIndications :Vitamin B deficiency 1 tablet once daily 90 tablet 5 Active docusate sodium (Colace) 100 MG capsule Take 1 capsule (100 mg) by mouth if needed in the morning and at bedtime for constipation. 60 capsule 5 Active lidocaine (Lidoderm) 5 % patchIndications: Low back pain without sciatica, unspecified back pain laterality, unspecified chronicity Apply 1 patch topically Once per day. Remove & discard patch within 12 hours or as directed by MD. 30 patch 2 5 Active Active Problems Problem Noted Date Diagnosed Date Poor memory 07/15/2025 Chronic midline low back pain without sciatica 0 07/15/2025 Increased endometrial stripe thickness Ovarian cyst, complex 04/11/2025 Periodontal disease 03/26/2025 Dental abscess 03/26/2025 Constipation 07/02/2024 Type 2 diabetes mellitus wit h other specified complication, unspecified whether ship/rec/doc control insulin use 07/02/2024 Uterine fibroid 05/13/2024 Cholelithiasis 05/13/2024 Lung nodules 05/13/2024 Overweight (BMI 25.0-29.9) 05/13/2024 Health care maintenance 05/23/2023 Overview (05/23/2023): Routine Health Maintenance: Immunizations: Due Tdap, Covid Booster HIV: Ordered 05/23/23 Hep C: Non reactive 06/15/21 Hepatitis B: Non reactive surface antibodies 06/15/21 Pap Smear: 2019 NILM, HPV neg. [place] [facility] [place] Repeat 2024. 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 Patient is advised to call that office tomorrow morning to fu with them for rs. Depressive disorder 06/27/2012 05/13/20 24 Encounters Date Type Department Care Team Description 08/06/2025 8:00 AM EDT Office Visit [facility] [address] [place] [phone] Amish Jerez DDS Periodontal disease (Primary Dx) 07/28/2025 Telephone [facility] [address] [place] [phone] Francesca No RN Interoffice Coordination 07/27/2025 1:00 PM EDT Clinical Support [address] [address] Mana Guzman RN Poor memory 07/27/2025 Travel 07/23/2025 Orders Only [address] [address] Raiza Trujillo MD Biliary calculus of other site without obstruction (Primary Dx); Calculus of gallbladder without cholecystitis without obstruction 07/23/[address] [address] Raiza Trujillo MD Call Back Request 07/15/2025 10:00 AM EDT Office Visit [address] [address] Raiza Trujillo MD Colon cancer screening (Primary Dx); Essential hypertension; Hypercholesterolemia; Impaired glucose tolerance; Low vitamin D level; Vitamin B deficiency; Low back pain without sciatica, unspecified back pain laterality, unspecified chronicity; Overweight (BMI 25.0-29.9); Type 2 diabetes mellitus with other specified complication, unspecified whether care home insulin use ([facility]); Health care maintenance; Increased endometrial stripe thickness; Poor memory; Chronic midline low back pain without sciatica 07/15/2025 Results Follow-Up [facility] [address] [address] Raiza Trujillo MD XR Lumbar Spine 2-3 Views 07/15/2025 Travel 07/14/2025 Telephone [facility] [address] [address] Raiza Trujillo MD CHART PREP 07/10/2025 Results Follow-Up [facility] [address] [address] Raiza Trujillo MD Albumin, Random Urine W/Creatinine, Comprehensive Metabolic Panel, Hemoglobin A1c, Additional followed-up results: 4 07/07/2025 Travel 07/02/2025 Telephone [facility] [address] [address] Amish Jerez, JUAN JOSÉ rs extraction with Dr. Jerez from Last 3 Months Immunizations Immunization Administration [...] Date Recorded Patient Health Questionnaire-9 Score 0 07/15/2025 Patient Health Questionnaire-9 Score 0 07/15/2025 Last PHQ-9: Questionnaire Data Not on file 0 07/15/2025 Housing Stability Answer Date Recorded What is [...] Date Recorded Patient Health Questionnaire-2 Score 0 07/15/2025 Internet Access Answer Date Recorded Internet Access [...] Sign Reading Time Taken Comments Blood Pressure 122/74 08/06/2025 8:08 AM EDT Pulse 68 08/06/2025 8:08 AM EDT Temperature 36.3 C (97.3 F) 07/15/2025 9:57 AM EDT Respiratory Rate 20 07/15/2025 9:57 AM EDT Oxygen Saturation 98% 04/10/2025 11:52 AM EDT Inhaled Oxygen Concentration - - Weight 62.8 kg (138 lb 6.4 oz) 07/15/2025 9:57 A M EDT Height 149.9 cm (4' 11 ) 07/15/2025 9:57 AM EDT Body Mass Index 27.95 07/15/2025 9:57 AM EDT Plan of Treatment Upcoming Encounters Date Type Department Care Team (Late st Contact Info) Description 11/16/2025 11:00 AM EST Office Visit [facility] [address] [place], [place] [phone] Khushboo Mondragon, OD [address] [place], [place] [phone] 11/27/2025 9:45 AM EST Office Visit [facility] [address] [place], [place] [phone] Raiza Trujillo MD [address] [place], [place] [phone] Health Maintenance Due Date Last Done Comments CT Colonography 1960 Colonoscopy 1960 Colorectal Cancer Screening 1960 FIT DNA/Cologuard 1962 FIT 1962 FOBT 1960 Sigmoidoscopy 1962 Diabetes: Foot Exam 1972 Zoster Vaccines (1 of 2) 2012 Pneumococcal Vaccine: 50+ Years (2 of 2 - PCV) 11/10/2012 11/10/2011 Dental Oral Exam 06/09/2020 12/09/2019 Dental Prophylaxis 07/19/2020 01/16/2020 Dental X-Ray: Full Mouth 12/10/2022 12/09/2019 Cervical Cancer Screening 07/07/2025 HPV/Cotest 07/07/2025 07/07/2020 Pap Smear 07/07/2025 07/07/2020 COVID-19 Vaccine ( season) 2025 08/23/2021, 08/02/2021 Influenza Vaccine (#1) 2025 8, 07/30/2015, 12/18/2014, Additional history exists Diabetes: Hemoglobin A1C 01/09/2026 025, 04/10/2025, 06/26/2024, Additional history exists Eye Exam 03/13/2026 03/13/2024, 05/0 12/2023, 03/13/2024, Additional history exists Dental X-Ray: Bitewings 03/27/2026 03/26/2025, 12/09 SDOH Screening 04/02/2026 04/02/2025 Disability Screening 04/10/2026 04/10/2025 Diabetes: Urine Protein Screening 07/10/2026 07/10/2025, 02/19/2024 Lipid Panel 07/10/2026 07/10/2025, 09/13, 06/26/2024, Additional history exists Alcohol/Substance Use Screening 07/15/2026 07/15/2025 Depression Screening 07/15/2026 07/15/2025, 07/15/20 Tobacco Screening 08/06/2026 08/06/2025 DTaP/Tdap/Td Vaccines (3 - Td or Tdap) [...] Procedure Name Priority Date/Time Associated Diagnosis Comments CASE PRESENTATION, DETAILED AND EXTENSIVE TREATMENT PLANNING Routine 08/06/2025 8:00 AM EDT 32 EXTRACTION, ERUPTED TOOTH OR EXPOSED ROOT (ELEVATION/FORCEPS REMOVAL) Routine 08/06/2025 8:00 AM EDT XR LUMBAR SPINE 2-3 VIEWS Routine 07/15/2025 10:23 AM EDT Low back pain without sciatica, unspecified back pain laterality, unspecified chronicity URIC ACID Routine 07/10/2025 8:37 AM EDT Type 2 diabetes mellitus without complication, without long-term current use of insulin ([facility]) VITAMIN D,25-OH,TOTAL,IA Routine 07/10/2025 8:37 AM EDT Type 2 diabetes mellitus without complication, without long-term current use of insulin (CMS/HCC) VITAMIN B12/FOLATE, SERUM PANEL Routine 07/10/2025 8:37 AM EDT Type 2 diabetes mellitus without complication, without long-term current use of insulin (CMS/HCC) LIPID PANEL, STANDARD Routine 07/10/2025 8:37 AM EDT Type 2 diabetes mellitus without complication, without long-term current use of insulin (CMS/HCC) HEMOGLOBIN A1C Routine 07/10/2025 8:37 AM EDT Type 2 diabetes mellitus without complication, without long-term current use of insulin (CMS/HCC) COMPREHENSIVE METABOLIC PANEL Routine 07/10/2025 8:37 AM EDT Type 2 diabetes mellitus without complication, without long-term current use of insulin (CMS/HCC) ALBUMIN, RANDOM URINE W/CREATININE Routine 07/10/2025 8:37 AM EDT Type 2 diabetes mellitus without complication, without long-term current use of insulin (CMS/HCC) BITEWING - SINGLE RADIOGRAPHIC IMAGE Routine 03/26/2025 11:30 AM EDT HEPATITIS C AB W/REFL TO HCV RNA, QN, PCR Routine 06/26/2024 10:00 AM EDT Annual physical exam HIV 1/2 ANTIGEN/ANTIBODY, FOURTH GENERATION W/RFL Routine 06/26/2024 10:00 AM EDT Annual physical exam HM PAP/HPV Routine 07/07/2020 PROPHYLAXIS - ADULT Routine 01/16/2020 1 2:00 AM EST INTRAORAL - COMPLETE SERIES OF RADIOGRAPHIC IMAGES Routine 12/09/2019 12:00 AM EST COMPREHENSIVE ORAL EVALUATION - NEW OR ESTABLISHED PATIENT Routine 12/09/2019 12:00 AM EST from Last 3 Months or Most Recently Relevant to Health Maintenance Results * XR Lumbar Spine 2-3 Views (07/15/2025 10:23 AM EDT) Anatomical Region Laterality Modality Spine, L-spine Radiographic Hannah ging 07/15/2025 10:2 3 AM EDT Narrative 07/15/2025 12:52 PM EDT [facility] [address] [place] [address] XRay Report Signed Patient: Bere Shah MR#: [id number] : 1960 Acct:[id number] Age/Sex: 64 / F ADM Date: 07/15/25 Loc: HO.HHCX Attending Dr: Raiza Grant MD Ordering Physician: Raiza Trujillo MD Date of Service: 07/15/25 Procedure(s): XR lumbar spine 2-3V Accession Number(s): [id number] cc: Raiza Trujillo MD Reason for Exam: ongoing lower back pain EXAMINATION: XR LUMBOSACRAL SPINE CLINICAL INFORMATION: ongoing lower back pain COMPARISON: None available. TECHNIQUE: Three views of the lumbosacral spine. FINDINGS: There is a mild levoconvex scoliosis, apex at L3. There is a normal lumbar lordosis. There is no subluxation. There is no fracture, compression deformity, or suspicious bone lesion. There is normal facet alignment bilaterally. No subluxations. Mild facet degenerative change spanning L4-S1. There is mild disc degeneration diffusely. There are ventral disc osteophytes at L1-L2 and L2-L3. Soft tissues appear normal. XR/XR lumbar spine 2-3V IMPRESSION: 1. No acute findings of the lumbosacral spine. 2. Mild degenerative spondylosis and minimal levoconvex scoliosis. Electronically signed by: Neel Escamilla MD 07/15/2025 12:49 PM EDT Dictated By: Neel Escamilla MD Signed By: <Electronically signed by Neel Escamilla MD in OV> 07/15/25 1249 DD/ 1023 TD/TT: 07/15/25 1030 Mechanical Development Engineer: Procedure Note Donotuseinterpreter, Image - 07/15/2025 [facility] [address] [place] [address] XRay Report Signed Patient: Bere ShahMR#: [id number] : 2Acct:[id number] Age/Sex: 64 / FADM Date: 07/15/25 Loc: HO.HHCX Attending Dr: Raiza Grant MD Ordering Physician: Raiza Trujillo MD Date of Service: 07/15/25 Procedure(s): XR lumbar spine 2-3V Accession Number(s): [id number] cc: Raiza Trujillo MD Reason for Exam: ongoing lower back pain EXAMINATION: XR LUMBOSACRAL SPINE CLINICAL INFORMATION: ongoing lower back pain COMPARISON: None available. TECHNIQUE: Three views of the lumbosacral spine. FINDINGS: There is a mild levoconvex scoliosis, apex at L3. There is a normal lumbar lordosis. There is no subluxation. There is no fracture, compression deformity, or suspicious bone lesion. There is normal facet alignment bilaterally. No subluxations. Mild facet degenerative change spanning L4-S1. There is mild disc degeneration diffusely. There are ventral disc osteophytes at L1-L2 and L2-L3. Soft tissues appear normal. XR/XR lumbar spine 2-3V IMPRESSION: 1. No acute findings of the lumbosacral spine. 2. Mild degenerative spondylosis and minimal levoconvex scoliosis. Electronically signed by: Neel Escamilla MD 07/15/2025 12:49 PM EDT Dictated By: Neel Escamilla MD Signed By: <Electronically signed by Neel Escamilla MD in OV> 07/15/25 1249 DD/ 1023 TD/TT: 07/15/25 1030 Mechanical Development Engineer: us Raiza Grant MD IMG XR PROCEDURES Final Result * Vitamin D, 25-Hydroxy, Total, Immunoassay (07/10/2025 8:37 AM EDT) Vitamin D 25-OH Total 32.6 >30 ng/mL [facility] Comment: Health Based Reference Values*< 20 ng/mL Wyoypsjui38-30 ng/mL Insufficient> 30 ng/mL Sufficient*Lonny LEES. N Engl J Med. 2007;357:266-280There is no well-established upper level of normal vitamin Dlevels. Some laboratories use 50 ng/mL as an upper limit ofnormal. However, toxicity is patient-dependent and may occurat any level. Careful correlation with the patient'spresentation is necessary and, if there is concern forvitamin D toxicity, treatment should be consideredirrespective of the serum level.Care must be taken in interpreting Vitamin D results fromdifferent laboratories and methodologies. Published datademonstrated that results from patients undergoinghemodialysis may show a negative bias when tested withvarious automated 25-OH vitamin D assays when compared toLC-MS/MS.When testing samples from patients whose predominant form ofVitamin D is Vitamin D2, such as patients receiving VitaminD2 supplementation, results that are subtherapeutic shouldbe confirmed with another method such as LC-MS/MS. Blood Venous blood specimen / Unknown 07/10/2025 8:37 AM EDT 07/10/2025 11:38 AM EDT Raiza Grant MD LAB BLOOD ORDERAB LES Final Result [facility] [address] [place] [phone] * Vitamin B12 (Cobalamin) and Folate Panel, Serum (07/10/2025 8:37 AM EDT) Vitamin B12 819 200 - 900 pg/mL [facility] Comment:NORMAL 200-900 PG/ML INDETERMINATE 160-199 PG/ML DEFICIENT < 160 PG/ML Folate 10.2 > or = 4.0 ng/mL [facility] Comment:Reference Values:> o r = 4.0 ng/mL< 4.0 ng/mL suggests folate deficiency Methotrexate, aminopterin and folinic acid(leucovorin) are chemotherapeutic agents whose molecularstructures are similar to folate; therefore, the Architectfolate assay cannot be used for patients using these drugs. Blood 07/10/2025 8:37 AM EDT 07/10/2025 11:38 AM EDT us Raiza Grant MD LAB BLOOD ORDERAB LES Final Result Performing Organization Address City/[facility]/ZIP Co de Phone Number [facility] [address] [place] [phone] * Albumin, Random Urine W/Creatinine (07/10/2025 8:37 AM EDT) Creatinine, Urine 163.90 mg/dL [facility] Microalbumin Urine 45.0 mg/L [facility] Microalbum Creatinine Ratio Ur 27.4 <30 ug/mg cr [facility] Comment:Albumin/Creatinine R atio Reference Ranges: Normal: < 30 ug/mg creatinine Microalbuminuria: 30 - 300 ug/mg creatinineClinical Albuminuria: > 300 ug/mg creatinine Urine (Urine, Random) 07/10/2025 8:37 AM EDT 07/10/2025 11:47 AM EDT us Raiza Grant MD LAB URINE ORDERAB LES Final Result Performing Organization Address [facility] Co de Phone Number [facility] [address] [place] [phone] * (ABNORMAL) Uric acid (07/10/2025 8:37 AM EDT) Uric Acid 7.5(H) 2.4 - 5.7 mg/dL [facility] Blood Venous blood specimen / Unknown 07/10/2025 8:37 AM EDT 07/10/2025 11:38 AM EDT us Raiza Grant MD LAB BLOOD ORDERAB LES Final Result Performing Organization Address City/[facility]/ZIP Co de Phone Number [facility] [address] [place] [phone] * Hemoglobin A1c (07/10/2025 8:37 AM EDT) Hemoglobin A1c 5.5 <6.0 % [facility] Comment:Hemoglobin A1C Refer ence Range Adults: 4.8 - 6.0 % Non diabetic: < 6.0 % Goal: < 7.0 %Additional Action Suggested: > 8.0 %Note: Hemoglobin A1c results are invalid for patients with abnormal amounts of HbF. Blood transfusions may impact the HbA1c concentration in the patient sample. Estimated Average Glucose 111 mg/dL [facility] Comment:eAG = Estimated ave rage glucose which is %A1C expressed asaverage glucose, using the formula of the [id number]-[id number] Glucose study (ADAG), Diabetes Care, Vol.31,#8,Jun. 2007 Blood Venous blood specimen / Unknown 07/10/2025 8:37 AM EDT 07/10/2025 11:38 AM EDT Raiza Grant MD LAB BLOOD ORDERAB LES Final Result [facility] [address] [place] [phone] * Lipid Panel, Standard (07/10/2025 8:37 AM EDT) Triglycerides 84 <150 mg/dL [facility] Comment:Desirable Triglyceri de: less than 150 mg/dLBorderline High Triglyceride 150-199 mg/dLHigh Triglyceride: 200-499 mg/dLVery High Triglyceride: greater than or equal to 5OO mg/dL Cholesterol 138 <200 mg/dL [facility] Comment:Desirable Cholestero l: less than 200 mg/dLBorderline High Cholesterol: 200-239 mg/dLHigh Cholesterol: greater than 239 mg/dL LDL Cholesterol Calculated 79 <100 mg/dL [facility] Comment:Desirable LDL: less than 100 mg/dLNear Optimal/Above Optimal LDL: 110- 129 mg/dLBorderline High LDL: 130-159 mg/dLHigh LDL: 160-189 mg/dLVery High LDL: greater than or equal to 190 mg/dL HDL Cholesterol 43 >40 mg/dL [facility] Comment:Desirable HDL: great er than 40 mg/dL Note: This HDL assay may give artificially low results in patients with liver disease. Blood Venous blood specimen / Unknown 07/10/2025 8:37 AM EDT 07/10/2025 11:38 AM EDT Raiza Grant MD LAB BLOOD ORDERAB LES Final Result [facility] [address] [place] [phone] * (ABNORMAL) Comprehensive Metabolic Panel (07/10/2025 8:37 AM EDT) Sodium 144 135 - 145 mmol/L [facility] Potassium 3.3 3.3 - 5.1 mmol/L [facility] Chloride 104 96 - 108 mmol/L [facility] Carbon Dioxide 30(H) 22 - 29 mmol/L [facility] Anion Gap 13 12 - 20 [facility] Urea Nitrogen (BUN) 15 9 - 16 mg/dL [facility] Creatinine, Serum 0.97 0.5 - 1.4 mg/dL [facility] Estimated Glomerular Filt Rate 58 [facility] Comment:Chronic Kidney Disea se: Estimated GFR < 60 mL/min/[id number] Kidney Disease: Estimated GFR < 15 mL/min/1.73m2 Glucose 96 60 - 115 mg/dL [facility] Calcium 10.2 8.4 - 10.2 mg/dL [facility] Bilirubin, Total 0.2 0.0 - 1.0 mg/dL [facility] Aspartate Amino Transferase 29 5 - 31 U/L [facility] Alanine Aminotransferase 10 0 - 31 U/L [facility] Total Protein 8.4(H) 6.5 - 8.0 g/dL [facility] Albumin Level 4.5 3.5 - 5.0 g/dL [facility] Alkaline Phosphatase 39 39 - 117 U/L [facility] Blood Venous blood specimen / Unknown 07/10/2025 8:37 AM EDT 07/10/2025 11:38 AM EDT Raiza Grant MD LAB BLOOD ORDERAB LES Final Result Performing Organization Address [facility]/ZIP Co de Phone Number [facility] [address] [place] [phone] * Hepatitis C Antibody with Reflex to HCV, RNA, Quantitative, Real-Time PCR (06/26/2024 10:00 AM EDT) Hepatitis C Antibody Nonreactive Nonreactive [facility] Comment:Antibodies to HCV no t detected; does not exclude early acuteHCV infection. Blood Venous blood specimen / Unknown 06/26/2024 10:00 AM EDT 06/26/2024 11:18 AM EDT Raiza Grant MD LAB BLOOD ORDERAB LES Final Result Performing Organization Address [facility] Co de Phone Number [facility] [address] [place] [phone] * HIV-1/2 Antigen and Antibodies, Fourth Generation, with Reflexes (06/26/2024 10:00 AM EDT) HIV AB/AG Nonreactive Nonreactive [facility] Comment:HIV-1 p24 Ag and/or HIV-1/HIV-2 Ab not detected.A test result that is nonreactive does not exclude thepossibility of exposure to or infection with HIV-1 and/orHIV-2. Nonreactive results in this assay for individualswith prior exposure to HIV-1 and/or HIV-2 may be due toantigen and antibody levels that are below the limit ofdetection of this assay.The [employer] HIV Ag/Ab Combo assay result andsupplemental assay results should be interpreted inconjunction with the patient's clinical presentation,history and other laboratory results. If the results areinconsistent with clinical evidence, additional testing issuggested to confirm the result. Blood Venous blood specimen / Unknown 06/26/2024 10:00 AM EDT 06/26/2024 11:18 AM EDT Raiza Grant MD LAB BLOOD ORDERAB LES Final Result [facility] [address] [place] [phone] [phone] * Pap Smear (07/07/2020) Pap Negative for intraephithelial lesion or malignancy Negative for intraephithelial lesion or malignancy, Other HPV Not Detected Undetected, Indeterminate, Quantitative, Not Detected Historical Provider HEALTH MAINTENANCE Final Result from Last 3 Months or Most Recently Relevant to Health Maintenance Insurance [facility] C3 DENTAL-[facility] MEDICAID STAND ADULT Care Teams Quality Assistant Relationship Specialty Start Date End Date Raiza Trujillo MD [address] [place] [phone] PCP - General Internal Medicine 08/21/23
--- OUTSIDE RECORDS SUMMARY | 2025-09-25 11:27 | XMS_ITS | Encounter Summary ---
Author Organization [employer] Address [address] [facility] [address] [place] [address] Care Team Providers Care Wedding Decorator Name Role Phone Raiza Trujillo MD Primary Care Pro vider Reason for Visit * Reason Onset Date Comments Call Back Request 07/23/2025 Encounter Details Date Type Department Care Team ([facility] st Contact Info) Description 07/23/2025 Telephone [facility] MEDICINE [address] [place] [address] Raiza Trujillo MD [address] [place] [address] Call Back Request Social History Tobacco Use Types Packs/Day [...] encounter Miscellaneous Notes * Telephone Encounter - Mana Guzman RN - 07/23/2025 2:27 PM EDT TC placed to the pt who states that they have tried to call [facility] Centralized Scheduling to try and set up an appt to have the US Abdomen Complete done that was ordered by PCP back in September of 2024.RN advised the pt that orders are typically good for one year but the pt stated that [facility] does not see the order in their system. RN advised that pt that a request will be sent to PCP to send in a neworder for a US Abdomen Complete. Pt stated understanding and was agreeable to this plan * Telephone Encounter - Rick Barnes - 07/23/2025 12:35 PM EDT Tc from pt requesting a call back to discuss US abdomen order. Please contact pt at [phone]. ([place] Citizen Speaker) documented in this encounter Plan of Treatment Upcoming Encounters Date Type Department Care Team (Late st Contact Info) Description 11/16/2025 11:00 AM EST Office Visit [facility] OPTOMETRY [address] [place] [phone] Kaya Mondragonica, OD [address] [place] [address] 11/27/2025 9:45 AM EST Office Visit [facility] MEDICINE [address] [place], [place] [phone] Raiza Trujillo MD [address] [place], [place] [phone] documented as of this encounter Visit Diagnoses Not on filedocumented in this encounter Additional Health Concerns Assessment Noted Time PHQ-9 Depression Total Score: 0 07/15/20 25 9:58 AM EDT documented as of this encounter Care Teams Wedding Decorator Relationship Specialty Start Date End Date Raiza Trujillo MD [address] [place] [address] [phone] PCP - General Internal Medicine 08/21/23 documented as of this encounter
--- OUTSIDE RECORDS SUMMARY | 2025-09-25 11:27 | XMS_ITS | Encounter Summary ---
Author Organization [employer] Address [address] [place] [address] Care Team Providers Care Freelance Art Director Name Role Phone Raiza Trujillo MD Primary Care Pro vider Encounter Details Date Type Department Care Team (Late st Contact Info) Description 12/26/2023 Orders Only [facility] MEDICINE [address] [place] [address] ProviderRudy MD Social History Tobacco Use Types [...] Description 11/16/2025 11:00 AM EST Office Visit [facility] OPTOMETRY [address] [place], [place] [phone] Tarka Khushboo, OD [address] [place] [address] 11/27/2025 9:45 AM EST Office Visit [facility] MEDICINE [address] [place] [address] Raiza Trujillo MD [address] [place], [place] [phone] documented as of this encounter Visit Diagnoses Not on filedocumented in this encounter Additional Health Concerns Assessment Noted Time PHQ-9 Depression Total Score: 0 11/14/19 23 3:12 PM EST documented as of this encounter Care Teams Freelance Art Director Relationship Specialty Start Date End Date Raiza Trujillo MD [address] [place], [place] [phone] PCP - General Internal Medicine 08/21/23 documented as of this encounter
== END 2025-09-25 09:55 | disposition home or self-care (01) ==
LOC: HO.US 09:54
PROVIDERS: PCP Student in an Organized Health Care Education/Training Program; Visit Provider Student in an Organized Health Care Education/Training Program
DX: K80.20 Calculus of gallbladder without cholecystitis without obstruction (principal)
CPT/HCPCS: 76700

== ENCOUNTER → 2025-09-25 10:01 | Outpatient (BNV) | payer MEDICAID, SELFPAY | PROVIDERS: PCP Student in an Organized Health Care Education/Training Program; Visit Provider Specialist | DX: K80.20 Calculus of gallbladder without cholecystitis without obstruction (principal) | CPT/HCPCS: 76700 ==